=== PATIENT | female | born 1990 | race Caucasian/White ===

== ENCOUNTER 2016-08-08 15:44 | Emergency (ER) | payer OTHER ==
[~2016-08-08 15:44] MED LIST: LEXA10TA PO; PREN29TA PO
[2016-08-08 16:49] LABS: MEAN CORPUSCULAR HGB CONC 36.2 % (32.0-36.0)
[2016-08-08 17:11] LABS: BACTERIA, URINE FEW /hpf; BLOOD, URINE NEG (NEG); COMMENT (UR) CULT NOT INDICATED; CULTURE IF INDICATED CULT NOT INDICATED; GLUCOSE,URINE NEG (NEG); KETONE, URINE NEG (NEG); NITRITE,URINE NEG (NEG); PH, URINE 5.5 (5.0-8.5); SQUAMOUS EPITHELIAL CELL URINE 1 /hpf (0-5); URINE COLOR YELLOW (YELLW/STRAW)
[2016-08-08 17:13] LABS: BASOPHIL % 0.2 % (0.0-2.0); EOSINOPHIL # 0.1 TH/MM3 (0-0.4); EOSINOPHIL % 1.4 % (0.0-4.0); HEMATOCRIT 33.3 % (35.0-46.0); LYMPH % 24.9 % (9.0-44.0); LYMPHOCYTE # 2.3 TH/MM3 (1.0-4.8); MEAN CELL VOLUME 83.5 FL (80.0-100.0); MEAN CORPUSCULAR HEMOGLOBIN 30.2 PG (27.0-34.0); MONO % 7.6 % (0.0-8.0); NEUT % 65.9 % (16.0-70.0); PLATELET COUNT 181 TH/MM3 (150-450); RED BLOOD COUNT 3.98 MIL/MM3 (4.00-5.30); RED CELL DISTRIBUTION WIDTH 12.1 % (11.6-17.2); WHITE BLOOD COUNT 9.1 TH/MM3 (4.0-11.0)
[2016-08-08 17:16] VITALS: BP 132/68; PULSE 89
[2016-08-08 17:17] LABS: HEMO FLAGS AUTO DIFF
[2016-08-08 17:22] LABS: AMPHETAMINE, URINE NEG (NEG); BARBITURATES, URINE NEG (NEG); COCAINE, URINE NEG (NEG)
--- NOTE | 2016-08-08 17:22 | PD ---
HPI Chief Complaint Headaches with blurred vision Date Seen: Aug 08, 2016 Travel History International Travel<30 Days: No Contact w/Intl Traveler<30Days: No Known Affected Area: No History of Present Illness HPI Ms. Briscoe is a 26 y/o at 31/ presenting for headaches with blurry vision. She states that over the past few months, she has had severe headaches that cause blurry vision. She has seen her PCP, Dr. Amara Abraham at the [facility], for these symptoms and was recommended symptomatic treatment with Tylenol. She also ordered a pre-eclampsia work up at her last clinic visit, however she states that she was told not to complete the tests at this time. She also has been having some leakage of fluid over the couple of days. She states that there was not a large amount lost, only a few drops to wet her underwear. She endorses good movement and denies any discharge or bleeding. She has a history PIH in her first which lead to an induction at 37 weeks. Of note she does have a history of hepatitis C. History Past Medical History Narrative Medical Hepatitis C Anxiety - Lexapro Obstetric History Obstetric History 1-Miscarriage at 14 weeks 2-Induced at 37w for PIH 3-uncomplicated at 39w Past Surgical History Narrative Surgical None reported Family History Narrative Family History None reported Social History Narrative Social History Denies use, but does have history of illicit drug use. Alcohol Use: No Tobacco Use: No Substance Abuse: No Allergies-Medications (Allergen,Severity, Reaction): Coded Allergies: Penicillin (Verified Allergy, Severe, RASH, 07/30/16) Seafood (Verified Allergy, Severe, 07/30/16) Uncoded Allergies: AIR FRESHENER (Allergy, Severe, ALLERGIC REACTION TO THE CONTACT OF AIR FRESHENER, 08/16/11) Home Meds Reported Medications Vit-Iron Carbonyl ( Plus Iron 29-1 mg)1 Tab Tab1 Tab PO DAILY #30 TAB Ref 10 06/04/16 Escitalopram (Lexapro)10 Mg Tab10 Mg PO DAILY #30 TAB Ref 0 06/04/16 Review of Systems General / Constitutional: No: Fever Eyes: Blurred Vision HENT: Lightheadedness, No: Headaches Cardiovascular: Chest Pain or Discomfort, Tachycardia, No: Palpitations Respiratory: No: Short of Breath Gastrointestinal: No: Nausea, Vomiting, Diarrhea Genitourinary: No: Dysuria, Discharge, Vaginal Bleeding Musculoskeletal: No: Weakness Skin: No Rash Neurologic: Headache Psychiatric: No: Mood Disorder Endocrine: No: Polydipsia Hematologic/Lymphatic: No Lymph Node Enlargement Physical Exam Narrative GENERAL: Well-nourished, well-developed patient. SKIN: Warm and dry. HEAD: Normocephalic and atraumatic. EYES: No scleral icterus. No injection or drainage. ENT: No nasal drainage noted. Mucous membranes pink. Airway patent. NECK: Supple, trachea midline. No JVD. CARDIOVASCULAR: Regular rate and rhythm without murmurs, gallops, or rubs. RESPIRATORY: Breath sounds equal bilaterally. No accessory muscle use. ABDOMEN/GI: Abdomen soft, non-tender, bowel sounds present, no rebound, no guarding Gravid to 31 weeks size FHT's: Category: 1 Baseline: 140 Reactive: + Variability: Moderate Decels: 0 EXTREMITIES: No cyanosis or edema. BACK: Nontender without obvious deformity. No CVA tenderness. NEUROLOGICAL: Awake and alert. Motor and sensory grossly within normal limits. Five out of 5 muscle strength in all muscle groups. Normal speech. Data Data Vital Signs Reviewed: Yes Orders Vital Signs (Adult) .ON ADMISSION (08/08/16 16:38) ^ Labor Status (08/08/16 16:38) Urinalysis - C+S If Indicated (08/08/16 16:38) ^ Hydration (08/08/16 16:38) Comprehensive Metabolic Panel (08/08/16 16:38) Uric Acid (08/08/16 16:38) Pamg-1 Test .ONCE (08/08/16 16:38) Complete Blood Count With Diff (08/08/16 16:38) [facility] Medical Record Reviewed: Yes Plan Ms. Briscoe is a 26 y/o at presenting for headaches with blurry vision 1. IUP at 31 weeks -Continue routine antepartum care -Category 1 tracing, reassuring -Encourage oral hydration 2. Headaches and Blurry Vision -Serial BP: 134/77-144/72 CBC: WBC 9.1, H/H 12/33.3, platelets 181 CMP potassium 3.1, AST 54, ALP 90 Uric acid 3.3 UA: Within normal limits -24 urine collection to be done as an outpatient -Recommended bed rest with Tylenol for headaches Discharge: Patient will be discharged with PCP follow up in [address] Amara Abraham. She will also be discharged home with a 24 hour urine collection for pre-eclampsia r/o. SDW: Dr. Teresa DW: Dr. Amara Abraham Diagnosis Diagnosis: Primary Impression: 31 weeks gestation of Additional Impression: Headache Disposition: 01 DISCHARGE HOME Condition: Stable Referrals: Amara Abraham MD 1 week Sin Taylor MD R1 Aug 08, 2016 17:22
[2016-08-08 17:31] VITALS: BP 132/81; PULSE 103
[2016-08-08 17:34] LABS: ALKALINE PHOSPHATASE 101 U/L (45-117); ALT (GPT) 90 U/L (10-53); ANION GAP 11 MEQ/L (5-15); AST (GOT) 54 U/L (15-37); BICARBONATE 22.7 MEQ/L (21.0-32.0); BLOOD UREA NITROGEN 7 MG/DL (7-18); CHLORIDE 104 MEQ/L (98-107); GLOMERULAR FILTRATION RATE 149 ML/MIN (>89); POTASSIUM 3.1 MEQ/L (3.5-5.1); SODIUM (NA) 138 MEQ/L (136-145); TOTAL BILIRUBIN ADULT 0.3 MG/DL (0.2-1.0); URIC ACID 3.3 MG/DL (2.6-6.0)
[2016-08-08 17:46] VITALS: BP 127/59; PULSE 85
[2016-08-08 18:01] VITALS: BP 143/77; PULSE 86
--- NOTE | 2016-08-08 18:13 | PD ---
HPI Chief Complaint She complains of headache and lightheadedness blurry vision possible loss of fluid or bleeding or contractions Date Seen: Aug 08, 2016 Travel History International Travel<30 Days: No Contact w/Intl Traveler<30Days: No Known Affected Area: No History of Present Illness HPI Is 26-year-old white female G8 para 2 at 32 weeks and is followed by family medicine clinic. She has a reactive heart rate tracing noted, no contraction is noted, her amnio sure is negative Para: 2 : 8 History Past Medical History Narrative Medical hepatitis C history however no recent hepatitis blood work drawn to know if she is antigen or antibody positive Obstetric History Obstetric History 8 para 2 Social History Alcohol Use: No Tobacco Use: No Substance Abuse: No Allergies-Medications (Allergen,Severity, Reaction): Coded Allergies: Penicillin (Verified Allergy, Severe, RASH, 07/30/16) Seafood (Verified Allergy, Severe, 07/30/16) Uncoded Allergies: AIR FRESHENER (Allergy, Severe, ALLERGIC REACTION TO THE CONTACT OF AIR FRESHENER, 08/16/11) Home Meds Reported Medications Vit-Iron Carbonyl ( Plus Iron 29-1 mg)1 Tab Tab1 Tab PO DAILY #30 TAB Ref 10 06/04/16 Escitalopram (Lexapro)10 Mg Tab10 Mg PO DAILY #30 TAB Ref 0 06/04/16 Review of Systems Eyes: Blurred Vision, Visual changes HENT: Headaches Physical Exam Narrative GENERAL: Well-nourished, well-developed patient. SKIN: Warm and dry. HEAD: Normocephalic and atraumatic. EYES: No scleral icterus. No injection or drainage. ENT: No nasal drainage noted. Mucous membranes pink. Airway patent. NECK: Supple, trachea midline. No JVD. CARDIOVASCULAR: Regular rate and rhythm without murmurs, gallops, or rubs. RESPIRATORY: Breath sounds equal bilaterally. No accessory muscle use. BREASTS: Bilateral exam showed no masses , no retractions, no nipple discharge. ABDOMEN/GI: Abdomen soft, non-tender, bowel sounds present, no rebound, no guarding Gravid to [32-] weeks size Fundal Height: [-34 cm] GENITOURINARY: External Genitalia: intact and normal in appearance BUS glands: [-] Cervix: [-] Not checked today Dilatation: [-] Effacement: [-] Station: [-] Presentation: [-vtx] Membranes: [intact ] Uterine Contractions: [none-] FHT's: Category: [1-] Baseline: [-144] Reactive: [-yes] Variability: [-mod] Decels: [none-] EXTREMITIES: No cyanosis or edema. BACK: Nontender without obvious deformity. No CVA tenderness. NEUROLOGICAL: Awake and alert. Motor and sensory grossly within normal limits. Five out of 5 muscle strength in all muscle groups. Normal speech. Data Data Orders Vital Signs (Adult) .ON ADMISSION (08/08/16 16:38) ^ Labor Status (08/08/16 16:38) Urinalysis - C+S If Indicated (08/08/16 16:38) ^ Hydration (08/08/16 16:38) Comprehensive Metabolic Panel (08/08/16 16:38) Uric Acid (08/08/16 16:38) Pamg-1 Test .ONCE (08/08/16 16:38) Complete Blood Count With Diff (08/08/16 16:38) Ob/Psych Drug Screen, Urine (08/08/16 16:56) Ur Bath Salts (08/08/16 16:18) Ur Heroin (08/08/16 16:18) Ur K2 Spice (08/08/16 16:18) Ur Ecstasy (08/08/16 16:18) Ur Methadone (08/08/16 16:18) Phencyclidine Urine (Pcp) (08/08/16 16:18) Labs Laboratory Tests Test 08/08/16 08/08/16 16:18 16:48 Urine Color YELLOW Urine Turbidity CLEAR Urine pH 5.5 Urine Specific Dolphin 1.007 Urine Protein NEG Urine Glucose (UA) NEG Urine Ketones NEG Urine Occult Blood NEG Urine Nitrite NEG Urine Bilirubin NEG Urine Urobilinogen LESS THAN 2.0 Urine Leukocyte Esterase NEG Urine RBC 1 Urine WBC 1 Urine Squamous Epithelial 1 Cells Urine Bacteria FEW Microscopic Urinalysis Comment CULT NOT INDICATED Urine Opiates Screen NEG Urine Barbiturates Screen NEG Urine Amphetamines Screen NEG Urine Benzodiazepines Screen NEG Urine Cocaine Screen NEG Urine Cannabinoids Screen NEG White Blood Count 9.1 Red Blood Count 3.98 Hemoglobin 12.0 Hematocrit 33.3 Mean Corpuscular Volume 83.5 Mean Corpuscular Hemoglobin 30.2 Mean Corpuscular Hemoglobin 36.2 Concent Red Cell Distribution Width 12.1 Platelet Count 181 Mean Platelet Volume 8.6 Neutrophils (%) (Auto) 65.9 Lymphocytes (%) (Auto) 24.9 Monocytes (%) (Auto) 7.6 Eosinophils (%) (Auto) 1.4 Basophils (%) (Auto) 0.2 Neutrophils # (Auto) 6.0 Lymphocytes # (Auto) 2.3 Monocytes # (Auto) 0.7 Eosinophils # (Auto) 0.1 Basophils # (Auto) 0.0 CBC Comment AUTO DIFF Sodium Level 138 Potassium Level 3.1 Chloride Level 104 Carbon Dioxide Level 22.7 Anion Gap 11 Blood Urea Nitrogen 7 Creatinine 0.50 Estimat Glomerular Filtration 149 Rate Random Glucose 137 Uric Acid 3.3 Calcium Level 8.4 Total Bilirubin 0.3 Aspartate Amino Transf 54 (AST/SGOT) Alanine Aminotransferase 90 (ALT/SGPT) Alkaline Phosphatase 101 Total Protein 7.0 Albumin 2.7 MDM Interpretation(s) Patient is 26 y/o white female to 32 weeks gestation presents complaining of light being lightheaded having headaches blurry vision. Possibly also losing amniotic fluid however amnio was negative. She is followed by family medicine clinic and they've been worried about her blood pressure elevations and her recently Y to get PIH lab drawn but patient never did it so she's here today what we did that today and it was within normal limits except for AST ALK which was slightly elevated at 50 - 90 range but this may just be related to her history of hepatitis C and its effect on the liver. She needs in the next blood draw to get a hepatitis profile to see if she's hepatitis C antibody positive or negative establishing a she's chronic active hepatitis or not, and would have these liver functions repeated and 3 days to make sure there is not trending upwards Plan To be at bedrest at home collect a 24-hour urine protein over the weekend and turned in first part of next week.Also getting her blood drawn again PIH labs hepatitis profile Diagnosis Diagnosis: Primary Impression: 31 weeks gestation of Additional Impression: Headache Disposition: 01 DISCHARGE HOME Condition: Stable Referrals: Amara Abraham MD 1 week Will Teresa II, MD Aug 08, 2016 18:12
[2016-08-08 18:14] LABS: SCAN/DIFF AUTO DIFF CONFIRMED
[2016-08-14 08:16] LABS: BATH SALTS (MDPV) UR NEG (NEG); ECSTASY (MDMA) UR NEG (NEG); HEROIN (6-ACETYLMORPHINE) UR NEG (NEG); K2 SPICE UR NEG (NEG); OBMETHADONE UR NEG (NEG); OXYCODONE (PERCODAN) NEG (NEG); PHENCYCLIDINE URINE NEG (NEG)
[2016-08-16] MEDS ORDERED: DAPTINJ IM (11:47)
[2016-08-16] MEDS ORDERED: TETA1INJ6 IM (12:03)
[2016-08-27] MEDS ORDERED: POTA1TAB4 PO (15:56)
[2016-09-16] MEDS ORDERED: BREAST PUMP1 MI1 TD (16:26)
== END 2016-08-08 18:26 | disposition home or self-care (01) ==
LOC: HOBED 15:44
DX: O26.893 Other specified pregnancy related conditions, third trimester (principal); R51 Headache; H53.8 Other visual disturbances; Z86.19 Personal history of other infectious and parasitic diseases; Z3A.31 31 weeks gestation of pregnancy
CPT/HCPCS: 36415; 80053; 80307; 81001; 84112; 84550; 85025; 99284; G0481

== ENCOUNTER 2016-08-15 18:26 | Emergency (ER) | payer OTHER ==
--- NOTE | 2016-08-15 18:44 | PD ---
HPI Chief Complaint elevated bp at home Date Seen: Aug 15, 2016 Time Seen: 18:46 Travel History International Travel<30 Days: No Contact w/Intl Traveler<30Days: No Known Affected Area: No History of Present Illness HPI This is a 26 yo @ 32.6 weeks who presents to the OB ED for elevated BP at home. Patient reports her BP at home was 218/109 she was in contact with her PCP Dr. Abraham who instructed her to go to the OB ED. She states all day she has not felt like her self. She reports seeing flashes of light and is having a AWAD. Reports she checked her BP multiple times today and has been elevated. Currently she denies any contractions, she denies vaginal bleeding, and any leakage of fluid. She is feeling her baby move. Of note the patient was here on 08/08/16 for AWAD and lightheadedness and blurry vision. She was also concerned of LOF. Amnisure was negative. Labs CBC: WBC 9.1, H/H 12/33.3, platelets 181, CMP potassium 3.1, AST 54, ALP 90, Uric acid 3.3, and UA. Patients PCP at that time had ordered a PIH workup due to her elevation of BP and history of PIH in previous . PIH workup was complete including a 24 urine protein of 197. She was supposed to have an US for measuring larger than dates, also supposed to see perinatology this has all been scheduled for Sep 02. Para: 2 : 4 History Past Medical History Narrative Medical Hepatitis C Anxiety - Lexapro Obstetric History Obstetric History 1-Miscarriage at 14 weeks 2-Induced at 37w for PIH 3-uncomplicated at 39w Social History Alcohol Use: No Tobacco Use: No Substance Abuse: No (does have hx of ilicit drug use) Allergies-Medications (Allergen,Severity, Reaction): Coded Allergies: Penicillin (Verified Allergy, Severe, RASH, 07/30/16) Seafood (Verified Allergy, Severe, 07/30/16) Uncoded Allergies: AIR FRESHENER (Allergy, Severe, ALLERGIC REACTION TO THE CONTACT OF AIR FRESHENER, 08/16/11) Home Meds Reported Medications Vit-Iron Carbonyl ( Plus Iron 29-1 mg)1 Tab Tab1 Tab PO DAILY #30 TAB Ref 10 06/04/16 Escitalopram (Lexapro)10 Mg Tab10 Mg PO DAILY #30 TAB Ref 0 06/04/16 Physical Exam Narrative GENERAL: Well-nourished, well-developed patient. SKIN: Warm and dry. HEAD: Normocephalic and atraumatic. EYES: No scleral icterus. No injection or drainage. ENT: No nasal drainage noted. Mucous membranes pink. Airway patent. NECK: Supple, trachea midline. No JVD. CARDIOVASCULAR: Regular rate and rhythm without murmurs, gallops, or rubs. RESPIRATORY: Breath sounds equal bilaterally. No accessory muscle use. BREASTS: Bilateral exam showed no masses , no retractions, no nipple discharge. ABDOMEN/GI: Abdomen soft, non-tender, bowel sounds present, no rebound, no guarding GENITOURINARY: External Genitalia: intact and normal in appearance Membranes: [intact] Uterine Contractions: [none] FHT's: Category: [1] Baseline: [125] Reactive: [+accel] Variability: [moderate] Decels: [none] EXTREMITIES: No cyanosis or edema. BACK: Nontender without obvious deformity. NEUROLOGICAL: Awake and alert. Motor and sensory grossly within normal limits. Trace non pitting edema. Normal speech. Data Data Vital Signs Reviewed: Yes MDM Plan 26 yo @ 32.6 weeks presenting to ED for elevated BP, HTN, and lightheadedness - Serial BP - Repeat BP 143/78, 121/71, 134/84 - Keep appt with PCP - Keep appt for US and with perinatologist BP reassuring december d/c home. Case discussed with Dr. Galvan and Dr. Abraham Disposition: 01 DISCHARGE HOME Condition: Stable Feli Self MD R3 Aug 15, 2016 18:44
[2016-08-16] MEDS ORDERED: DAPTINJ IM (11:47)
[2016-08-16] MEDS ORDERED: TETA1INJ6 IM (12:03)
[2016-08-27] MEDS ORDERED: POTA1TAB4 PO (15:56)
[2016-09-16] MEDS ORDERED: BREAST PUMP1 MI1 TD (16:26)
== END 2016-08-15 20:30 | disposition home or self-care (01) ==
LOC: HOBED 18:26
DX: O13.3 Gestational [pregnancy-induced] hypertension without significant proteinuria, third trimester (principal); B19.20 Unspecified viral hepatitis C without hepatic coma; F41.9 Anxiety disorder, unspecified
CPT/HCPCS: 99284

== ENCOUNTER 2016-08-19 11:38 | Emergency (ER) | payer OTHER ==
--- NOTE | 2016-08-19 12:18 | PD ---
HPI Chief Complaint elevated BP Date Seen: Aug 19, 2016 Time Seen: 12:03 Travel History International Travel<30 Days: No Contact w/Intl Traveler<30Days: No History of Present Illness HPI This is a 26 yo @ 33.3 weeks who presents to the OB ED for elevated BP at home. Patient states her BP was in the 170s/90s at home. She reports she wasn' t doing anything all weekend, just resting. She states she only went out this weekend for her baby shower. She reports she does not feel well. She is feeling her baby move, no LOF, no contractions, no vaginal bleeding. She reports feeling very anxious. Endorses AWAD, dizziness, and LE edema. I saw the patient on 08/15 for the same reason. Patient reported BP in the 200s/ 100s at home. Serial BP were performed in the OB ED and were wnl and she was discharged home with PCP follow up. Of note the patient was here on 08/08/16 for AWAD and lightheadedness and blurry vision. She was also concerned of LOF. Amnisure was negative. Labs CBC: WBC 9.1, H/H 12/33.3, platelets 181, CMP potassium 3.1, AST 54, ALP 90, Uric acid 3.3, and UA. Patients PCP at that time had ordered a PIH workup due to her elevation of BP and history of PIH in previous . PIH workup was complete including a 24 urine protein of 197. Patient states she did not do her 24 hr urine protein collection correct, she only collected it for 14 hours. So she recollected it and turned it into quest yesterday. She has US scheduled for today at 1pm for measuring larger than dates, also supposed to see perinatology on Sep 02. History Past Medical History Narrative Medical Hepatitis C Anxiety - Lexapro Obstetric History Obstetric History 1-Miscarriage at 14 weeks 2-Induced at 37w for PIH 3-uncomplicated at 39w Past Surgical History Surgical History: No Previous Surgery Social History Alcohol Use: No Tobacco Use: No Substance Abuse: No (hx of ilicit drug use) Allergies-Medications (Allergen,Severity, Reaction): Coded Allergies: Penicillin (Verified Allergy, Severe, RASH, 08/16/16) Seafood (Verified Allergy, Severe, 08/16/16) Uncoded Allergies: AIR FRESHENER (Allergy, Severe, ALLERGIC REACTION TO THE CONTACT OF AIR FRESHENER, 08/16/11) Home Meds Reported Medications Vit-Iron Carbonyl ( Plus Iron 29-1 mg)1 Tab Tab1 Tab PO DAILY #30 TAB Ref 10 06/04/16 Escitalopram (Lexapro)10 Mg Tab10 Mg PO DAILY #30 TAB Ref 0 06/04/16 Physical Exam Narrative GENERAL: Well-nourished, well-developed patient. SKIN: Warm and dry. HEAD: Normocephalic and atraumatic. EYES: No scleral icterus. No injection or drainage. ENT: No nasal drainage noted. Mucous membranes pink. Airway patent. NECK: Supple, trachea midline. No JVD. CARDIOVASCULAR: Regular rate and rhythm without murmurs, gallops, or rubs. RESPIRATORY: Breath sounds equal bilaterally. No accessory muscle use. BREASTS: Bilateral exam showed no masses , no retractions, no nipple discharge. ABDOMEN/GI: Abdomen soft, non-tender, bowel sounds present, no rebound, no guarding GENITOURINARY: FHT's: Category: [1] Baseline: [150] Reactive: [+accels] Variability: [moderate] Decels: [none] EXTREMITIES: No cyanosis or edema. BACK: Nontender without obvious deformity. No CVA tenderness. NEUROLOGICAL: Awake and alert. Motor and sensory grossly within normal limits. Normal speech. Data Data Orders Vital Signs (Adult) .ON ADMISSION (08/19/16 11:58) MDM Plan 26 yo @ 33.3 weeks presents for elevated BP - category 1 tracing reassuring - serial BPs: 139/88, 139/95, 153/79, 138/90, 103/56 - Will hold on initiating antihypertensive treatment - limit BP checks to 2x per day Discussed with Dr. Hernandez Diagnosis Diagnosis: Primary Impression: induced hypertension Disposition: DISCHARGE HOME Condition: Stable Feli Self MD R3 Aug 19, 2016 12:18
[2016-08-19 12:45] VITALS: BP 103/56; PULSE 93
[2016-08-19 13:00] VITALS: BP 146/78; PULSE 96
[2016-08-27] MEDS ORDERED: POTA1TAB4 PO (15:56)
[2016-09-16] MEDS ORDERED: BREAST PUMP1 MI1 TD (16:26)
== END 2016-08-19 14:04 | disposition home or self-care (01) ==
LOC: HOBED 11:38
DX: O13.3 Gestational [pregnancy-induced] hypertension without significant proteinuria, third trimester (principal); R51 Headache; R42 Dizziness and giddiness; R60.0 Localized edema; F41.9 Anxiety disorder, unspecified; Z86.19 Personal history of other infectious and parasitic diseases; Z3A.33 33 weeks gestation of pregnancy
CPT/HCPCS: 76816; 76819

== ENCOUNTER 2016-09-02 16:47 | Emergency (ER) | payer OTHER ==
[2016-09-02] VITALS (9 sets, daily range): BP systolic 126–142; BP diastolic 66–91; PULSE 85–101; RESP 20
[~2016-09-02 16:47] MED LIST changes: +POTA1TAB4 PO
--- NOTE | 2016-09-02 17:19 | PD ---
HPI Chief Complaint High blood pressure Date Seen: Sep 02, 2016 Time Seen: 17:20 Travel History International Travel<30 Days: No Contact w/Intl Traveler<30Days: No History of Present Illness HPI 26 year-old @ 35/3 weeks presents to the OB ED for elevated BP at home to 190s/80. She reports she wasn't doing anything all, just resting while taking. She did not re-take it before coming in because higher than 160s. Feeling baby move, no LOF, no contractions, no vaginal bleeding. She reports blurred vision when her blood pressure is high and emesis x1 that was non-bloody and contained salad. Denies AWAD and dizziness, has +1 peripheral edema that has been months in duration. Of note, she would like this to be over and would like an induction. "They induced me before at 37 weeks because I kept coming in with high blood pressure". Patient was seen in OB ED 08/19, 08/15, and 08/08. She is scheduled to meet with maternal medicine tomorrow Sep 03 to evaluate for being larger than dates. Para: 2 : 4 History Past Medical History Narrative Medical Hepatitis C Anxiety - Lexapro Obstetric History Obstetric History 1-Miscarriage at 14 weeks 2-Induced at 37w for PIH 3-uncomplicated at 39w Past Surgical History Surgical History: No Previous Surgery Family History Family History: Negative Social History Alcohol Use: No Tobacco Use: No Substance Abuse: No (hx illicit drug use) Allergies-Medications (Allergen,Severity, Reaction): Coded Allergies: Penicillin (Verified Allergy, Severe, RASH, 08/30/16) Seafood (Verified Allergy, Severe, 08/30/16) Uncoded Allergies: AIR FRESHENER (Allergy, Severe, ALLERGIC REACTION TO THE CONTACT OF AIR FRESHENER, 08/16/11) Home Meds Active Scripts Potassium Chloride ER (K-Tab)20 Meq Tab40 Meq PO ONCE #2 TAB Ref 0 Prov:Amara Abraham MD 08/27/16 Reported Medications Vit-Iron Carbonyl ( Plus Iron 29-1 mg)1 Tab Tab1 Tab PO DAILY #30 TAB Ref 10 06/04/16 Escitalopram (Lexapro)10 Mg Tab10 Mg PO DAILY #30 TAB Ref 0 06/04/16 Review of Systems Except as stated in HPI: all other systems reviewed are Neg Physical Exam Narrative GENERAL: Well-nourished, well-developed patient. SKIN: Warm and dry. HEAD: Normocephalic and atraumatic. EYES: No scleral icterus. No injection or drainage. ENT: No nasal drainage noted. Mucous membranes pink. Airway patent. NECK: Supple, trachea midline. No JVD. CARDIOVASCULAR: Regular rate and rhythm without murmurs, gallops, or rubs. RESPIRATORY: Breath sounds equal bilaterally. No accessory muscle use. BREASTS: Bilateral exam showed no masses , no retractions, no nipple discharge. ABDOMEN/GI: Abdomen soft, non-tender, bowel sounds present, no rebound, no guarding FHT's: Category: [-] 1 Baseline: [-] 130 Reactive: [-] Y with accels Variability: [-] Mod Decels: [-] No EXTREMITIES: 1+ peripheral edema BACK: Nontender without obvious deformity. No CVA tenderness. NEUROLOGICAL: Awake and alert. Motor and sensory grossly within normal limits. Five out of 5 muscle strength in all muscle groups. Normal speech. Data Data Vital Signs Reviewed: Yes Orders Vital Signs (Adult) .ON ADMISSION (09/02/16 17:05) ^ Labor Status (09/02/16 17:05) Urinalysis - C+S If Indicated (09/02/16 17:05) [facility] Medical Record Reviewed: Yes Plan Plan 26 yo @ 35.3 weeks presents for elevated BP - Category 1 tracing reassuring - Trended serial B/Ps reassuring in patient with known history of anxiety- thusfar 103/56, 146/82, 137/79 - Will hold on initiating antihypertensive treatment - Limit BP checks to 1x per day, recommend if high again, lie on side for 30 minutes, re-test before coming in - Discharged with phenergan #20 tabs for nausea/vomiting - U/A ordered- provided protein <2+, will discharge home with follow up for mfm tomorrow and PCP in 1 week. -No protein in urine two days ago (08/30) with urinalysis -If protein 2+, will observe for 23 hours with pre-eclamptic labs SDW Dr Teresa, Dr Linn Diagnosis Diagnosis: Primary Impression: 35 weeks gestation of Additional Impressions: Nausea and vomiting during History of hypertension Disposition: DISCHARGE HOME Condition: Stable Scripts Promethazine (Phenergan)25 Mg Tab25 Mg PO Q6H PRN (Nausea/Vomiting) #20 TAB Ref 0 Prov:Alina Quintero MD R1 09/02/16 Alina Quintero MD R1 Sep 02, 2016 17:19
[2016-09-02] MEDS ORDERED: PROM25TA5 PO (17:35)
[2016-09-02 18:21] LABS: BLOOD, URINE NEG (NEG); COMMENT (UR) CULT NOT INDICATED; CULTURE IF INDICATED CULT NOT INDICATED; GLUCOSE,URINE NEG (NEG); KETONE, URINE NEG (NEG); MUCUS URINE FEW /lpf (OCC); NITRITE,URINE NEG (NEG); PH, URINE 6.5 (5.0-8.5); URINE COLOR LIGHT-YELLOW (YELLW/STRAW)
--- NOTE | 2016-09-02 19:24 | PD ---
HPI Chief Complaint High blood pressure Date Seen: Sep 02, 2016 Time Seen: 16:47 Travel History International Travel<30 Days: No Contact w/Intl Traveler<30Days: No Known Affected Area: No History of Present Illness HPI This patient is 26-year-old white female 35 weeks and 3 days the patient family medicine clinic. She presents planning of high blood pressure at home when she checked her pressure was 190/110 and another pressure was 180/100 or so. She denies any other complaints or problems, she checks her blood pressure often at home and she was just taking it immediately after checking checking it again related nurses here say that she checks her blood pressure continually when she's here in the adnexa between blood pressure Y Desir keep description her pressure so much patient states she was to come in and get her baby delivered because she started being and she does her blood pressures dangerous at home and she wants to get the make sure she does not have a stroke her baby is active she has no contractions bleeding or rupture the membranes heart rate tracing is reactive she is not jessy Para: 2 : 4 History Past Medical History Narrative Medical Has high blood pressure only when she is , has a history of hepatitis C Obstetric History Obstetric History 2 vaginal deliveries 1 loss Family History Family History: Negative Social History Alcohol Use: No Tobacco Use: No Substance Abuse: No Allergies-Medications (Allergen,Severity, Reaction): Coded Allergies: Penicillin (Verified Allergy, Severe, RASH, 08/30/16) Seafood (Verified Allergy, Severe, 08/30/16) Uncoded Allergies: AIR FRESHENER (Allergy, Severe, ALLERGIC REACTION TO THE CONTACT OF AIR FRESHENER, 08/16/11) Home Meds Active Scripts Promethazine (Phenergan)25 Mg Tab25 Mg PO Q6H PRN (Nausea/Vomiting) #20 TAB Ref 0 Prov:Alina Quintero MD R1 09/02/16 Potassium Chloride ER (K-Tab)20 Meq Tab40 Meq PO ONCE #2 TAB Ref 0 Prov:Amara Abraham MD 08/27/16 Reported Medications Vit-Iron Carbonyl ( Plus Iron 29-1 mg)1 Tab Tab1 Tab PO DAILY #30 TAB Ref 10 06/04/16 Escitalopram (Lexapro)10 Mg Tab10 Mg PO DAILY #30 TAB Ref 0 06/04/16 Review of Systems General / Constitutional: No: Fever, Weight Gain, Chills, Other Eyes: No: Diploplia, Blurred Vision, Visual changes, Pain, Photophobia HENT: No: Headaches, Vertigo, Lightheadedness Cardiovascular: No: Irregular Rhythm, Chest Pain or Discomfort, Palpitations, Tachycardia, Syncope, Varicosities, Edema, Cyanosis Respiratory: No: Cough, Short of Breath, Other Gastrointestinal: No: Nausea, Vomiting, Diarrhea Genitourinary: No: Decreased Urinary Output, Oliguria Musculoskeletal: No: Limited ROM, Weakness, Cramping, Edema, Pain Skin: No Rash, No Itching, No Dryness, No Lumps, No Change in Pigmentation, No Change in Nails, No Alopecia, No Lesions Neurologic: No: Weakness, Dizziness, Syncope, Focal Abnormalities, Coordination Problem, Headache, Slurred Speech, Seizures Psychiatric: No: Depression, Suicidal Ideations, Homicidal Ideation Endocrine: No: Heat Intolerance, Cold Intolerance, Polydipsia, Polyuria, Other Physical Exam Narrative GENERAL: Well-nourished, well-developed patient. SKIN: Warm and dry. HEAD: Normocephalic and atraumatic. EYES: No scleral icterus. No injection or drainage. ENT: No nasal drainage noted. Mucous membranes pink. Airway patent. NECK: Supple, trachea midline. No JVD. CARDIOVASCULAR: Regular rate and rhythm without murmurs, gallops, or rubs. RESPIRATORY: Breath sounds equal bilaterally. No accessory muscle use. BREASTS: Bilateral exam showed no masses , no retractions, no nipple discharge. ABDOMEN/GI: Abdomen soft, non-tender, bowel sounds present, no rebound, no guarding Gravid to [36-] weeks size Fundal Height: [36-] GENITOURINARY: Membranes: [intact Uterine Contractions: [none-] FHT's: Category: [-1] Baseline: [`144-] Reactive: [yes-] Variability: [-mod] Decels: [none-] EXTREMITIES: No cyanosis or edema. BACK: Nontender without obvious deformity. No CVA tenderness. NEUROLOGICAL: Awake and alert. Motor and sensory grossly within normal limits. Five out of 5 muscle strength in all muscle groups. Normal speech. Data Data Orders Vital Signs (Adult) .ON ADMISSION (09/02/16 17:05) ^ Labor Status (09/02/16 17:05) Urinalysis - C+S If Indicated (09/02/16 17:05) Labs Laboratory Tests Test 09/02/16 16:55 Urine Color LIGHT-YELLOW Urine Turbidity CLEAR Urine pH 6.5 Urine Specific [place] 1.006 Urine Protein NEG Urine Glucose (UA) NEG Urine Ketones NEG Urine Occult Blood NEG Urine Nitrite NEG Urine Bilirubin NEG Urine Urobilinogen LESS THAN 2.0 Urine Leukocyte Esterase NEG Urine RBC LESS THAN 1 Urine WBC LESS THAN 1 Urine Mucus FEW Microscopic Urinalysis Comment CULT NOT INDICATED MDM Interpretation(s) This patient is a 26-year-old white female 30 5/2 weeks followed with the family medicine clinic presents planning of high blood pressure at home. Her blood pressures here have been all within normal limits in the 130 over 80s to 120 over 60s range no high pressures were noted urinalysis negative for protein or infection Plan The plan for this patient is bedrest at home on her side and check her pressure less frequently she checks her blood pressure did size she was told is likely on her side for 30 minutes at least and then recheck it if she wants to but did not check it over and over and over very rapidly consented artificially inflates blood pressure she is also advised to maintain a low-salt diet. He is scheduled to come back tomorrow for a maternal medicine consultation and ultrasound Diagnosis Diagnosis: Primary Impression: 35 weeks gestation of Additional Impressions: Nausea and vomiting during History of hypertension Disposition: 01 DISCHARGE HOME Condition: Stable Scripts Promethazine (Phenergan)25 Mg Tab25 Mg PO Q6H PRN (Nausea/Vomiting) #20 TAB Ref 0 Prov:Alina Quintero MD R1 09/02/16 Patient Instructions: General Instructions, at 35 to 38 Weeks (ED) Departure Forms: Tests/Procedures Will Teresa II, MD Sep 02, 2016 19:24
[2016-09-16] MEDS ORDERED: BREAST PUMP1 MI1 TD (16:26)
== END 2016-09-02 18:56 | disposition home or self-care (01) ==
LOC: HOBED 16:47
DX: O13.3 Gestational [pregnancy-induced] hypertension without significant proteinuria, third trimester (principal); Z3A.35 35 weeks gestation of pregnancy
CPT/HCPCS: 59025; 81001

== ENCOUNTER 2016-09-03 11:25 | Inpatient (IN) | payer OTHER ==
[~2016-09-03 11:25] MED LIST changes: -BREAST PUMP1 MI1 TD; -IBUP-232 PO; -OXYC1TAB63 PO; -SENN1TAB PO
--- NOTE | 2016-09-03 11:49 | PD ---
HPI Chief Complaint Hypertension Date Seen: Sep 03, 2016 Time Seen: 11:38 (Davidson Linn MD R2) Travel History International Travel<30 Days: No Contact w/Intl Traveler<30Days: No Known Affected Area: No (Davidson Linn MD R2) History of Present Illness HPI 26 at 35.4; patient has a history of hypertension in and taking her blood pressures at home. Yesterday 09/02/2016, her blood pressure at home was reportedly 180/100. She came to OB triage later that night. Her blood pressures in OB triage or in the range of 130/80. She was discharged home and subsequently returned for a prescheduled appointment with maternal medicine on 09/03/2016. During that appointment and did not triage area her blood pressures range from 124/92 to 130s over 80s. However, the patient is complaining of severe 7 out of 10 headache which has been present for the last month. She is also complaining of blurry vision for the last 2 weeks. She sees black spots and this is concerning to her. She also complains of abdominal pain "near my liver"in the right upper quadrant. This also has been going on for approximately 2 weeks. Abdominal pain is 7 out of 10, nonradiating. This pain will last 2 hours and go away. Unrelated to food. No vaginal bleeding, no loss of fluid, she feels the baby move normally. Para: 2 : 4 (Davidson Linn MD R2) History Past Medical History Narrative Medical Depression/anxiety- on Lexapro 10 mg daily Hepatitis C (Davidson Linn MD R2) Obstetric History Obstetric History First : Spontaneous vaginal delivery in 2010. She was induced at 37 weeks secondary to chronic hypertension. No history of preeclampsia Second : Spontaneous vaginal delivery in 2013. She was induced at 41 weeks. No history of hypertension or preeclampsia. (Davidson Linn MD R2) Past Surgical History Surgical History: No Previous Surgery (Davidson Linn MD R2) Family History Family History: Negative (Davidson Linn MD R2) Social History Alcohol Use: No Tobacco Use: No Substance Abuse: No (Davidson Linn MD R2) Allergies-Medications (Allergen,Severity, Reaction): Coded Allergies: Penicillin (Verified Allergy, Severe, RASH, 08/30/16) Seafood (Verified Allergy, Severe, 08/30/16) Uncoded Allergies: AIR FRESHENER (Allergy, Severe, ALLERGIC REACTION TO THE CONTACT OF AIR FRESHENER, 08/16/11) Home Meds Active Scripts Promethazine (Phenergan)25 Mg Tab25 Mg PO Q6H PRN (Nausea/Vomiting) #20 TAB Ref 0 Prov:Alina Quintero MD R1 09/02/16 Potassium Chloride ER (K-Tab)20 Meq Tab40 Meq PO ONCE #2 TAB Ref 0 Prov:Amara Abraham MD 08/27/16 Reported Medications Vit-Iron Carbonyl ( Plus Iron 29-1 mg)1 Tab Tab1 Tab PO DAILY #30 TAB Ref 10 06/04/16 Escitalopram (Lexapro)10 Mg Tab10 Mg PO DAILY #30 TAB Ref 0 06/04/16 Physical Exam Narrative GENERAL: Well-nourished, well-developed patient. SKIN: Warm and dry. HEAD: Normocephalic and atraumatic. EYES: No scleral icterus. No injection or drainage. ENT: No nasal drainage noted. Mucous membranes pink. Airway patent. NECK: Supple, trachea midline. No JVD. CARDIOVASCULAR: Regular rate and rhythm without murmurs, gallops, or rubs. RESPIRATORY: Breath sounds equal bilaterally. No accessory muscle use. ABDOMEN/GI: Abdomen soft, tender to palpation in the right upper quadrant, bowel sounds present, no rebound, no guarding Uterine Contractions: None FHT's: Category: 1 Baseline: 135 Reactive: Yes with accelerations Variability: moderate Decels: None EXTREMITIES: No cyanosis or edema. BACK: Nontender without obvious deformity. No CVA tenderness. NEUROLOGICAL: Awake and alert. Motor and sensory grossly within normal limits. Five out of 5 muscle strength in all muscle groups. Normal speech. (Davidson Linn MD R2) Data Data Vital Signs Reviewed: Yes (Davidson Linn MD R2) [facility] Medical Record Reviewed: Yes Interpretation(s) 26-year-old at 35.4 with history of hypertension in with complaints of headache, blurry vision, and right upper quadrant pain; concern for preeclampsia 1. Intrauterine Category 1 tracing Continue routine care 2. Hypertension in Place in observation for 24 hour observation. Currently pressures less than 130/80. Continue to monitor blood pressure every 2 hours. Concern for preeclampsia with symptoms of headache, blurry vision Labs ordered: CBC, CMP, uric acid, urinalysis, 24-hour protein 3. Anxiety/depression Continue Lexapro 10 mg daily 4. Chronic Hepatitis C (Davidson Linn MD R2) Medical Record Reviewed: Yes Attending Attestation See H&P for additional Attending notes. I HAVE REVIEWED THE RECORD AND AGREE WITH THE ABOVE NOTE AND PLAN OF CARE WAS DISCUSSED. I HAVE AUTHORIZED THE ORDER FOR PLACEMENT IN OUT-PATIENT OBSERVATION STATUS. (Davida Velarde MD) Diagnosis Diagnosis: Primary Impression: induced hypertension Additional Impressions: 35 weeks gestation of Headache Davidson Linn MD R2 Sep 03, 2016 11:49 Davida Velarde MD Sep 03, 2016 16:15
[2016-09-03] MEDS: LACTATED RINGER'S 1000 ML INJ 1,000 ML IV SCH (11:58)
[2016-09-03] MEDS ORDERED: NIFEdipine 10 MG CAP PO PRN ×3 (12:00→12:45)
[2016-09-03] MEDS ORDERED: SODIUM CHLORIDE 0.9% FLUSH 5 ML FLUSH IV PRN (12:00)
[2016-09-03] MEDS ORDERED: CALCIUM GLUCONATE 10% 1 GM/10 ML VIAL IV PUSH PRN (12:00)
--- NOTE | 2016-09-03 12:18 | HHI.HP ---
History & Physical H&P HPI Chief Complaint Hypertension Date Seen: Sep 03, 2016 Time Seen: 11:38 Travel History International Travel<30 Days: No Contact w/Intl Traveler<30Days: No Known Affected Area: No History of Present Illness HPI 26 at 35.4; patient has a history of hypertension in and taking her blood pressures at home. Yesterday 09/02/2016, her blood pressure at home was reportedly 180/100. She came to OB triage later that night. Her blood pressures in OB triage or in the range of 130/80. She was discharged home and subsequently returned for a prescheduled appointment with maternal medicine on 09/03/2016. During that appointment and did not triage area her blood pressures range from 124/92 to 130s over 80s. However, the patient is complaining of severe 7 out of 10 headache which has been present for the last month. She is also complaining of blurry vision for the last 2 weeks. She sees black spots and this is concerning to her. She also complains of abdominal pain "near my liver"in the right upper quadrant. This also has been going on for approximately 2 weeks. Abdominal pain is 7 out of 10, nonradiating. This pain will last 2 hours and go away. Unrelated to food. No vaginal bleeding, no loss of fluid, she feels the baby move normally. Para: 2 : 4 History (Limited) History Past Medical History Narrative Medical Depression/anxiety- on Lexapro 10 mg daily Hepatitis C Obstetric History Obstetric History First : Spontaneous vaginal delivery in 2010. She was induced at 37 weeks secondary to chronic hypertension. No history of preeclampsia Second : Spontaneous vaginal delivery in 2013. She was induced at 41 weeks. No history of hypertension or preeclampsia. Past Surgical History Surgical History: No Previous Surgery Family History Family History: Negative Social History Alcohol Use: No Tobacco Use: No Substance Abuse: No Allergies-Medications Allergies-Medications (Allergen,Severity, Reaction): Coded Allergies: Penicillin (Verified Allergy, Severe, RASH, 08/30/16) Seafood (Verified Allergy, Severe, 08/30/16) Uncoded Allergies: AIR FRESHENER (Allergy, Severe, ALLERGIC REACTION TO THE CONTACT OF AIR FRESHENER, 08/16/11) Home Meds Active Scripts Promethazine (Phenergan)25 Mg Tab25 Mg PO Q6H PRN (Nausea/Vomiting) #20 TAB Ref 0 Prov:Alina Quintero MD R1 09/02/16 Potassium Chloride ER (K-Tab)20 Meq Tab40 Meq PO ONCE #2 TAB Ref 0 Prov:Amara Abraham MD 08/27/16 Reported Medications Vit-Iron Carbonyl ( Plus Iron 29-1 mg)1 Tab Tab1 Tab PO DAILY #30 TAB Ref 10 06/04/16 Escitalopram (Lexapro)10 Mg Tab10 Mg PO DAILY #30 TAB Ref 0 06/04/16 ROS Review of Systems Physical Exam Physical Exam Narrative GENERAL: Well-nourished, well-developed patient. SKIN: Warm and dry. HEAD: Normocephalic and atraumatic. EYES: No scleral icterus. No injection or drainage. ENT: No nasal drainage noted. Mucous membranes pink. Airway patent. NECK: Supple, trachea midline. No JVD. LUNGS: CTAB CARDIOVASCULAR: Regular rate and rhythm without murmurs, gallops, or rubs. RESPIRATORY: Breath sounds equal bilaterally. No accessory muscle use. ABDOMEN/GI: Abdomen soft, tender to palpation in the right upper quadrant, bowel sounds present, no rebound, no guarding Uterine Contractions: None FHT's: Category: 1 Baseline: 135 Reactive: Yes with accelerations Variability: moderate Decels: None EXTREMITIES: No cyanosis. 1 + pitting edema bilaterally on shins R>L. BACK: Nontender without obvious deformity. No CVA tenderness. NEUROLOGICAL: Awake and alert. Motor and sensory grossly within normal limits. Five out of 5 muscle strength in all muscle groups. Normal speech. 1+ DTR Data Data Data Vital Signs Reviewed: Yes [facility] MDM Medical Record Reviewed: Yes Interpretation(s) 26-year-old at 35.4 with history of hypertension in with complaints of headache, blurry vision, and right upper quadrant pain; concern for preeclampsia 1. Intrauterine Category 1 tracing Continue routine care Obtain GBS status now (rapid GBS). 2. Hypertension in Place in observation for 24 hour observation. Currently pressures less than 130/80. Continue to monitor blood pressure every 2 hours. Concern for preeclampsia with symptoms of headache, blurry vision Treating with betamethasone 12 mg q24hr X 2 (first dose now, second dose 2016 at 1600) Labs ordered: CBC, CMP, uric acid, urinalysis, 24-hour protein 3. Anxiety/depression Change Lexapro to 5 mg daily 4. Chronic Hepatitis C DW Dr. Velarde and OB hospitalist Dr. Borden Diagnosis Diagnosis: Primary Impression: induced hypertension Additional Impressions: 35 weeks gestation of Headache (Davidson Linn MD R2) H&P Pt seen and examined. H&P reviewed and corroborated w/ pt at bedside. Essentially 26 yo at 35w 4d with 1+ month hx intermittently elevated BPs , documented preEclampsia, w/ ambulatory reports generally higher than in office. Proteinuria 300+ , subsequent 24hr collection <300mg protein. Mild transaminase elevation, w/ hx of same in pt w/ HepC. To date, no documented "severe features". ROS Currently feels well except for "sinus pressure", mild severity. Attributes to "cold" onset last 1-2days. ROS episodic blurry vision, none at this time. occas RUQ discomforts, none at this time. Stable LE edema. +FM, mild vag d/c, no bleeding or ROM reported. Occasionally crampy, No fevers, cough, CP or SOB. No N/V, has just eaten lunch. BP 124/92, repeat as of 2pm 153/67. PE significant for trace pitting BLE from shins. Otherwise unremarkable. FHT 135 baseline with accels, cat I tracing, reactive NST LY 19, BPP 8/8 No contx UA dip neg protein. GBS pending Uric Acid wnl, AST 42 (sl elevated, but reduced from 54 Aug 08, 2016). Plts 190, hmgb 13 ADMIT to OBS status for preEclampsia w/ subjective concerning features. Proceed w/ Betamethasone per d/w OBH and per review of perinatology recs. BP monitoring overnight, fu pending labs, 24 hr collection for protein. Pt and FOB counseled re: Dx and mngmnt, all questions answered. I HAVE REVIEWED THE RECORD AND AGREE WITH THE ABOVE NOTE AND PLAN OF CARE WAS DISCUSSED. I HAVE AUTHORIZED THE ORDER FOR PLACEMENT IN OUT-PATIENT OBSERVATION STATUS. (Davida Velarde MD) Davidson Linn MD R2 Sep 03, 2016 12:18 Davida Velarde MD Sep 03, 2016 16:14
[2016-09-03 12:51] LABS: HEMATOCRIT 37.6 % (35.0-46.0); MEAN CELL VOLUME 83.7 FL (80.0-100.0); MEAN CORPUSCULAR HEMOGLOBIN 28.9 PG (27.0-34.0); MEAN CORPUSCULAR HGB CONC 34.5 % (32.0-36.0); PLATELET COUNT 190 TH/MM3 (150-450); RED BLOOD COUNT 4.49 MIL/MM3 (4.00-5.30); RED CELL DISTRIBUTION WIDTH 12.3 % (11.6-17.2); REVIEW FLAG FINAL; WHITE BLOOD COUNT 11.6 TH/MM3 (4.0-11.0)
[2016-09-03 12:54] LABS: BACTERIA, URINE OCC /hpf; BLOOD, URINE NEG (NEG); COMMENT (UR) CULT NOT INDICATED; CULTURE IF INDICATED CULT NOT INDICATED; GLUCOSE,URINE NEG (NEG); KETONE, URINE NEG (NEG); NITRITE,URINE NEG (NEG); PH, URINE 7.5 (5.0-8.5); URINE COLOR LIGHT-YELLOW (YELLW/STRAW)
[2016-09-03] MEDS ORDERED: LABETALOL HCL 100 MG/20 ML VIAL IV PUSH PRN (13:00)
[2016-09-03 13:16] LABS: ALKALINE PHOSPHATASE 125 U/L (45-117); ALT (GPT) 47 U/L (10-53); ANION GAP 11 MEQ/L (5-15); AST (GOT) 42 U/L (15-37); BICARBONATE 23.1 MEQ/L (21.0-32.0); BLOOD UREA NITROGEN 5 MG/DL (7-18); CHLORIDE 101 MEQ/L (98-107); GLOMERULAR FILTRATION RATE 205 ML/MIN (>89); POTASSIUM 3.5 MEQ/L (3.5-5.1); SODIUM (NA) 135 MEQ/L (136-145); TOTAL BILIRUBIN ADULT 0.5 MG/DL (0.2-1.0); URIC ACID 3.8 MG/DL (2.6-6.0)
[2016-09-03] MEDS ORDERED: BETAMETHASONE SOD PHOS/ACETATE SUSP 30 MG/5 ML VIAL IM ONE (16:00)
[2016-09-03] MEDS ORDERED: PILL SPLITTER OTHER PRN (16:00)
[2016-09-03] MEDS: ACETAMINOPHEN 500 MG CPLT PO PRN (17:43)
[2016-09-03] MEDS: SODIUM CHLORIDE 0.9% FLUSH 5 ML FLUSH IV SCH (21:00)
[2016-09-03] MEDS ORDERED: ESCITALOPRAM OXALATE 10 MG TAB PO SCH (21:00)
[2016-09-04] MEDS: LACTATED RINGER'S 1000 ML INJ 1,000 ML IV SCH ×2 (01:18→14:38)
--- NOTE | 2016-09-04 08:32 | PD.OB.ANTE ---
Subjective Diagnosis: (1) Chronic hypertension in Diagnosis: Principal (2) 35 weeks gestation of Diagnosis: Principal (3) Headache Diagnosis: Principal (4) Hepatitis C Diagnosis: Secondary (5) Depression with anxiety Diagnosis: Secondary Interval History Vital signs stable: blood [id number]/50, 126/73, 111/56, 126/56. Highest B/P yesterday @2pm: 153/67. Reports moderate frontal headache, improved by Tylenol, persistent for the past month. Also intermittent floaters and spots in front of eyes, but not recently. Denies SOB, chest pain, palpitations. Chronic peripheral edema several months in duration improved since yesterday. Patient reports difficulty sleeping secondary to low back pain and requests Lexepro be moved to 6pm because she was very anxious prior to receiving it at 9pm. Antepartum ROS: Reports: New complaints, movement normal, Denies: Loss of fluid, Vaginal bleeding, Contractions Objective Vital Signs Vital Signs Date Time Temp Pulse Resp B/P Pulse Ox O2 Delivery O2 Flow Rate FiO2 09/03/16 18:34 18 Lab & Micro Results Test 09/03/16 09/03/16 11:30 12:25 Group B Streptococcus (PCR) NEGATIVE White Blood Count 11.6 TH/MM3 Red Blood Count 4.49 MIL/MM3 Hemoglobin 13.0 GM/DL Hematocrit 37.6 % Mean Corpuscular Volume 83.7 FL Mean Corpuscular Hemoglobin 28.9 PG Mean Corpuscular Hemoglobin 34.5 % Concent Red Cell Distribution Width 12.3 % Platelet Count 190 TH/MM3 Mean Platelet Volume 8.6 FL Urine Color LIGHT-YELLOW Urine Turbidity CLEAR Urine pH 7.5 Urine Specific [place] 1.006 Urine Protein NEG mg/dL Urine Glucose (UA) NEG mg/dL Urine Ketones NEG mg/dL Urine Occult Blood NEG Urine Nitrite NEG Urine Bilirubin NEG Urine Urobilinogen LESS THAN 2.0 MG/DL Urine Leukocyte Esterase TRACE Urine WBC LESS THAN 1 /hpf Urine Bacteria OCC /hpf Microscopic Urinalysis Comment CULT NOT INDICATED Sodium Level 135 MEQ/L Potassium Level 3.5 MEQ/L Chloride Level 101 MEQ/L Carbon Dioxide Level 23.1 MEQ/L Anion Gap 11 MEQ/L Blood Urea Nitrogen 5 MG/DL Creatinine 0.38 MG/DL Estimat Glomerular Filtration 205 ML/MIN Rate Random Glucose 71 MG/DL Uric Acid 3.8 MG/DL Calcium Level 8.6 MG/DL Total Bilirubin 0.5 MG/DL Aspartate Amino Transf 42 U/L (AST/SGOT) Alanine Aminotransferase 47 U/L (ALT/SGPT) Alkaline Phosphatase 125 U/L Total Protein 7.2 GM/DL Albumin 2.9 GM/DL Date/Time Procedure Status Source Growth 09/03/16 12:25 Cancelled Genital Vaginal 09/03/16 11:30 Group B Streptococcus Screen Received Genital Genital Region Pending Physical Exam GENERAL: Adult female in no acute distress. CARDIOVASCULAR: RRR. No murmurs. RESPIRATORY: Breath sounds equal bilaterally. Lungs CTAB. No wheezing. ABDOMEN/GI: Abdomen soft, non-tender. No RUQ pain. No HSM. No masses. +BS GENITOURINARY: FHT's: Category: 1 Baseline: 135 Reactive: Yes, with accelerations Variability: Moderate Decels: No EXTREMITIES: Trace peripheral edema, 2+ patellar reflexes, symmetrical, no calf tenderness Assessment and Plan Problem List: (1) 35 weeks gestation of Status: Acute (2) Chronic hypertension in Status: Chronic (3) Depression with anxiety Status: Chronic (4) Hepatitis C Status: Chronic (5) Headache Status: Chronic Assessment and Plan 26 year-old female at 35/4 with chronic HTN in and depression/anxiety, presenting with headache, blurry vision, and RUQ pain admitted to observation to rule out pre-eclampsia. 1. 35 weeks gestation of -Category 1 tracing -Continue routine care -Rapid GBS negative 2. Chronic Hypertension in -Admit for 24 hour observation. -Pressures less than <140/80, with exception one measurement 153/67 yesterday at 2pm -Monitor blood pressure q2h -Concerning symptoms for pre-eclampsia improved/resolved: headache improved, RUQ pain/floaters resolved - suspect symptoms more likely secondary to anxiety or somatization -Treating with betamethasone 12 mg q24hr X 2 (first dose now, second dose 2016 at 1600) -Labs ordered: CBC, CMP, uric acid, urinalysis, 24-hour protein -CBC with platelets wnl, CMP with improving LFT (elevated secondary to Hepatitis C), U/A without protein, ketones, blood -First 24-hour urine protein 300+, second test <300g protein -24 hour protein collection in progress- will finish this afternoon. 3. Anxiety/depression -Continue home Lexapro 5mg daily, move to 1800 per pt request 4. Headache - Tylenol 500mg q6h PRN pain1-10 5. Chronic Hepatitis C -Likely reason for elevated LFTs, slowly improving -Follow up outpatient with GI -UDS negative (09/03/16) SDW: Dr Vipin Borden, Dr. Kaveh Quintero,Alina Mclean MD R1 Sep 04, 2016 08:31
[2016-09-04] MEDS: SODIUM CHLORIDE 0.9% FLUSH 5 ML FLUSH IV SCH ×2 (08:58→21:12)
[2016-09-04] MEDS ORDERED: ESCITALOPRAM OXALATE 10 MG TAB PO SCH (09:00)
[2016-09-04 14:11] LABS: URINE TOTAL PROTEIN TIMED 8.2 MG/DL
[2016-09-04] MEDS: ACETAMINOPHEN 500 MG CPLT PO PRN (14:55)
[2016-09-04 16:00] VITALS: RESP 18
[2016-09-04] MEDS ORDERED: BETAMETHASONE SOD PHOS/ACETATE SUSP 30 MG/5 ML VIAL IM ONE (16:00)
[2016-09-04] MEDS: MULTIVIT/MIN/PREN/FOL AC/IRON PRENATAL TAB PO SCH (16:00)
--- NOTE | 2016-09-04 17:03 | HHI.FPPN ---
Addendum to progress note ADDENDUM Reason for addendum: Additonal documentation Additional information Patient is a 26 year-old female at 35/4 with chronic HTN in and depression/anxiety, presenting with headache, blurry vision, and RUQ pain admitted to observation 09/03/16 to rule out pre-eclampsia. B/p while in observation 131/68, 133/70, 137/76. At [facility] visit 09/02/16 prompting admission for observation, however, blood pressures of 147/95 and 145/94 were recorded. Combined with 24-hour urine protein of 361g (UOP volume 4400mL) pt meets criteria for pre-eclampsia. Though RUQ pain and spots/floaters have resolved, and headache has improved, these symptoms, combined with blood pressures and proteinuria, concerning pre-eclampsia, potentially with severe features (vs mild pre-eclampsia with somatization/manufactured symptoms for secondary gain of emergent induction) Plan 1. Pre-Eclampsia -Patient not safe for discharge at this time, recommend inpatient admission with CBC, CMP, uric acid, U/A repeated at minimum q48h until delivery or induction at 37 weeks -Should patient go into active labor prior to 37 weeks, tocolytics should not be used -Should patient develop signs/symptoms of severe pre-eclampsia or there is indication of distress, emergent induction should be performed, with MgS for seizure protection -Pt desires to go home due to discomfort with hospital stay and concern over 5 year old daughter care-plans -Risks and benefits of hospitalization versus leaving against medical advice were explained to patient -OB Dr. Amara Arbaham was notified of updates in patient status via telephone @5:30pm -Continue routine antepartum care including hydration, daily multivitamin, nir-Colace BID -NST q8h: Category 1 tracing reassuring -Vital signs q4h, with monitoring of blood pressure. -Notify physician if blood pressures 140/80+ x2, at least four hours apart -Labetalol and nifedipine per protocol for HTN PRN -Continue to monitor for features of severe pre-eclampsia such as acute/ worsening headache, vision changes, RUQ pain, or hyperreflexia -Notify physician of sudden changes -Repeat CBC, CMP, Uric acid, U/A in AM 2. Anxiety/depression -Continue home Lexapro 5mg daily, move to 1800 per pt request 3. Headache, Improving - Tylenol 500mg q6h PRN pain1-10 4. Chronic Hepatitis C -Trend LFTs (likely reason they are elevated, not good indicator for pre- eclampsia) -Follow up outpatient with GI -UDS negative (09/03/16) SDW: Alina Salvador MD R1 Sep 04, 2016 17:03
--- NOTE | 2016-09-04 17:31 | HHI.PR ---
Subjective Remarks This patient is a 26-year-old 4 para 2 today she is 35 weeks and 5 days she was admitted yesterday for observation secondary to an elevated blood pressure Patient has a history of hypertension in and yesterday she complained of some right upper quadrant pain she was admitted for laboratory data and a 24- hour urine protein as well as an evaluation by maternal medicine Her laboratory data demonstrated a platelet count of 190,000 AST of 42 ALT a 47 24-hour urine demonstrated 361 mg of protein Patient has a history of hepatitis C Recommendation by maternal- medicine is that the patient be managed as an inpatient and induced at 37 weeks Or deliver prior to that time if there is indication such as elevated blood pressure necessitating controlled with IV medication The need for magnesium sulfate, or any changes in the category tracing This was discussed with the patient she does not want to remain in the hospital for 9 days Advantages and disadvantages of hospitalization were discussed with the patient It was discussed that if she wanted to leave and not be managed as an inpatient she would have to sign herself out AMA It was also discussed that if she did sign herself out AMA she would not be able to be monitored to the level that maternal medicine has recommended with twice daily nonstress testing Also she is at risk for developing severe preeclampsia with subsequent seizures with increased maternal and morbidity this was fully discussed with the patient She still does not want to stay for 9 days As this is a family practice patient Dr. Abraham is her physician will have Dr. Abraham discussed this with the patient Objective - Vital Signs Date Time Temp Pulse Resp B/P Pulse Ox O2 Delivery O2 Flow Rate FiO2 09/04/16 16:00 18 Result Diagram: 09/03/16 1225 09/03/16 1225 Rosa Mesa MD Sep 04, 2016 17:31
[2016-09-04] MEDS: ESCITALOPRAM OXALATE 10 MG TAB PO SCH (17:58)
[2016-09-04] MEDS: DOCUSATE SODIUM 50 MG/SENNA 8.6 MG TAB PO SCH (21:11)
[2016-09-05 06:01] LABS: AUTOMATED NEUTROPHIL # 10.7 TH/MM3 (1.8-7.7); BASOPHIL % 0.1 % (0.0-2.0); EOSINOPHIL % 0.1 % (0.0-4.0); HEMATOCRIT 33.1 % (35.0-46.0); HEMO FLAGS DIFF FINAL; LYMPH % 12.8 % (9.0-44.0); LYMPHOCYTE # 1.7 TH/MM3 (1.0-4.8); MEAN CELL VOLUME 83.7 FL (80.0-100.0); MEAN CORPUSCULAR HEMOGLOBIN 29.6 PG (27.0-34.0); MEAN CORPUSCULAR HGB CONC 35.3 % (32.0-36.0); MONO % 5.8 % (0.0-8.0); NEUT % 81.2 % (16.0-70.0); PLATELET COUNT 149 TH/MM3 (150-450); RED BLOOD COUNT 3.96 MIL/MM3 (4.00-5.30); RED CELL DISTRIBUTION WIDTH 12.4 % (11.6-17.2); WHITE BLOOD COUNT 13.2 TH/MM3 (4.0-11.0)
[2016-09-05 06:31] LABS: ALKALINE PHOSPHATASE 117 U/L (45-117); ALT (GPT) 40 U/L (10-53); ANION GAP 10 MEQ/L (5-15); AST (GOT) 25 U/L (15-37); BICARBONATE 24.1 MEQ/L (21.0-32.0); BLOOD UREA NITROGEN 5 MG/DL (7-18); CHLORIDE 106 MEQ/L (98-107); GLOMERULAR FILTRATION RATE 146 ML/MIN (>89); POTASSIUM 3.9 MEQ/L (3.5-5.1); SODIUM (NA) 140 MEQ/L (136-145); TOTAL BILIRUBIN ADULT 0.2 MG/DL (0.2-1.0); URIC ACID 3.1 MG/DL (2.6-6.0)
[2016-09-05] MEDS: DOCUSATE SODIUM 50 MG/SENNA 8.6 MG TAB PO SCH ×2 (09:00→20:26)
[2016-09-05] MEDS: SODIUM CHLORIDE 0.9% FLUSH 5 ML FLUSH IV SCH ×2 (09:00→21:00)
[2016-09-05] MEDS: MULTIVIT/MIN/PREN/FOL AC/IRON PRENATAL TAB PO SCH (09:00)
[2016-09-05] MEDS ORDERED: ACETAMINOPHEN 500 MG CPLT PO PRN (11:15)
--- NOTE | 2016-09-05 14:34 | PD.OB.ANTE ---
Subjective Diagnosis: (1) Chronic hypertension in Diagnosis: Principal (2) 35 weeks gestation of Diagnosis: Principal (3) Headache Diagnosis: Principal (4) Hepatitis C Diagnosis: Secondary (5) Depression with anxiety Diagnosis: Secondary Interval History Patient continues to have headache. Improved with tylenol. She spoke with her PCP Dr. Abraham and is planning on doing a symptom diary and relay whether or not her headache is related to stress/anxiety. No fever, chills, n/v/d, sob. Antepartum ROS: Reports: movement normal, Denies: New complaints, Loss of fluid, Vaginal bleeding, Contractions, Other Objective Vital Signs Vital Signs Date Time Temp Pulse Resp B/P Pulse Ox O2 Delivery O2 Flow Rate FiO2 09/04/16 16:00 18 Lab & Micro Results Test 09/05/16 04:14 White Blood Count 13.2 TH/MM3 Red Blood Count 3.96 MIL/MM3 Hemoglobin 11.7 GM/DL Hematocrit 33.1 % Mean Corpuscular Volume 83.7 FL Mean Corpuscular Hemoglobin 29.6 PG Mean Corpuscular Hemoglobin 35.3 % Concent Red Cell Distribution Width 12.4 % Platelet Count 149 TH/MM3 Mean Platelet Volume 8.8 FL Neutrophils (%) (Auto) 81.2 % Lymphocytes (%) (Auto) 12.8 % Monocytes (%) (Auto) 5.8 % Eosinophils (%) (Auto) 0.1 % Basophils (%) (Auto) 0.1 % Neutrophils # (Auto) 10.7 TH/MM3 Lymphocytes # (Auto) 1.7 TH/MM3 Monocytes # (Auto) 0.8 TH/MM3 Eosinophils # (Auto) 0.0 TH/MM3 Basophils # (Auto) 0.0 TH/MM3 CBC Comment DIFF FINAL Differential Comment Sodium Level 140 MEQ/L Potassium Level 3.9 MEQ/L Chloride Level 106 MEQ/L Carbon Dioxide Level 24.1 MEQ/L Anion Gap 10 MEQ/L Blood Urea Nitrogen 5 MG/DL Creatinine 0.51 MG/DL Estimat Glomerular Filtration 146 ML/MIN Rate Random Glucose 116 MG/DL Uric Acid 3.1 MG/DL Calcium Level 8.5 MG/DL Total Bilirubin 0.2 MG/DL Aspartate Amino Transf 25 U/L (AST/SGOT) Alanine Aminotransferase 40 U/L (ALT/SGPT) Alkaline Phosphatase 117 U/L Total Protein 6.9 GM/DL Albumin 2.7 GM/DL Date/Time Procedure Status Source Growth 09/03/16 12:25 Cancelled Genital Vaginal 09/03/16 11:30 Group B Streptococcus Screen - Preliminary Resulted Genital Genital Region NO GROUP B STREP ISOLATED Physical Exam GENERAL: Well-nourished, well-developed patient. CARDIOVASCULAR: Regular rate and rhythm without murmurs, gallops, or rubs. RESPIRATORY: Breath sounds equal bilaterally. No accessory muscle use. ABDOMEN/GI: Abdomen soft, non-tender. FHT's: Category: 1 Baseline: 140 Reactive: yes, with accels Variability: moderate Decels: none EXTREMITIES: No cyanosis or edema, non-tender, without signs of DVT. Assessment and Plan Problem List: (1) Chronic hypertension in Status: Chronic (2) 35 weeks gestation of Status: Acute (3) Headache Status: Chronic (4) Hepatitis C Status: Chronic (5) Depression with anxiety Status: Chronic Assessment and Plan 26 year-old female at 35/6 with intermittent HTN in and depression/anxiety, presenting with headache, blurry vision, and RUQ pain admitted to floor per MFM to monitor/deliver at 37 weeks 1. 35.6 weeks gestation of -Category 1 tracing -Continue routine care -Rapid GBS negative -s/p betamethasone X 2 doses 2. Concern for pre-eclampsia -Admit to floor. Will follow MFM recommendations (which are scanned into the computer) -Continue to monitor until develops severe features or patient reaches 37 weeks. At that time, will deliver. -Pressures currently wnl -Monitor blood pressure q6h -Mag sulfate if needed for seizure ppx -Labs reviewed. Order labs every other day or prn. 3. Anxiety/depression -Continue home Lexapro 5mg daily, move to 1800 per pt request 4. Headache - Tylenol 500mg q6h PRN pain1-10 5. Chronic Hepatitis C -Follow up outpatient with GI -UDS negative (09/03/16) Davidson Arrington Dr., MD R2 Sep 05, 2016 14:34
[2016-09-05] MEDS: ESCITALOPRAM OXALATE 10 MG TAB PO SCH (17:59)
[2016-09-06] MEDS: DOCUSATE SODIUM 50 MG/SENNA 8.6 MG TAB PO SCH (09:00)
[2016-09-06] MEDS: MULTIVIT/MIN/PREN/FOL AC/IRON PRENATAL TAB PO SCH (09:00)
[2016-09-06] MEDS ORDERED: LIDOCAINE HCL 1% 50 ML VIAL ONE ×2 (09:08→09:38)
--- NOTE | 2016-09-06 09:50 | PD.OB.ANTE ---
Subjective Diagnosis: (1) Chronic hypertension in Diagnosis: Principal (2) 35 weeks gestation of Diagnosis: Principal (3) Headache Diagnosis: Principal (4) Hepatitis C Diagnosis: Secondary (5) Depression with anxiety Diagnosis: Secondary Interval History This procedure note amniocentesis Patient's abdomen was prepped with Betadine of local lidocaine infused and a spinal needle used with ultrasound guidance to enter the pocket of fluid in the patient's right lateral side of the uterus were no complications to that procedure 10 cc of clear amniotic fluid drawn off without problem and sent for lung maturation post procedure NST is reactive Objective Lab & Micro Results Date/Time Procedure Status Source Growth 09/03/16 12:25 Cancelled Genital Vaginal 09/03/16 11:30 Group B Streptococcus Screen - Preliminary Resulted Genital Genital Region NO GROUP B STREP ISOLATED Physical Exam GENERAL: Well-nourished, well-developed patient. CARDIOVASCULAR: Regular rate and rhythm without murmurs, gallops, or rubs. RESPIRATORY: Breath sounds equal bilaterally. No accessory muscle use. ABDOMEN/GI: Abdomen soft, non-tender. Fundus: [-] GENITOURINARY: External Genitalia: intact and normal in appearance Cervix: [-] Dilatation: [-] Effacement: [-] Station: [-] Presentation: [-] Membranes: [-] Uterine Contractions: [-] FHT's: Category: [-] Baseline: [-] Reactive: [-] Variability: [-] Decels: [-] EXTREMITIES: No cyanosis or edema, non-tender, without signs of DVT. Assessment and Plan Problem List: (1) Chronic hypertension in Status: Chronic (2) 35 weeks gestation of Status: Acute (3) Headache Status: Chronic (4) Hepatitis C Status: Chronic (5) Depression with anxiety Status: Chronic Assessment and Plan 26 year-old female at 35/6 with intermittent HTN in and depression/anxiety, presenting with headache, blurry vision, and RUQ pain admitted to floor per MF to monitor/deliver at 37 weeks 1. 35.6 weeks gestation of -Category 1 tracing -Continue routine care -Rapid GBS negative -s/p betamethasone X 2 doses 2. Concern for pre-eclampsia -Admit to floor. Will follow MFM recommendations (which are scanned into the computer) -Continue to monitor until develops severe features or patient reaches 37 weeks. At that time, will deliver. -Pressures currently wnl -Monitor blood pressure q6h -Mag sulfate if needed for seizure ppx -Labs reviewed. Order labs every other day or prn. 3. Anxiety/depression -Continue home Lexapro 5mg daily, move to 1800 per pt request 4. Headache - Tylenol 500mg q6h PRN pain1-10 5. Chronic Hepatitis C -Follow up outpatient with GI -UDS negative (09/03/16) ALTAGRACIA Teresa,Will Gurrola II, MD Sep 06, 2016 09:50
--- NOTE | 2016-09-06 11:07 | PD.OB.ANTE ---
Subjective Diagnosis: (1) Chronic hypertension in Diagnosis: Principal (2) 35 weeks gestation of Diagnosis: Principal (3) Headache Diagnosis: Principal (4) Hepatitis C Diagnosis: Secondary (5) Depression with anxiety Diagnosis: Secondary Interval History Patient is doing well this morning. She is looking forward to the amniocentesis. No headaches, vision changes. No fever, chills. No chest pain or shortness of breath. (Davidson Linn MD R2) Objective Lab & Micro Results Date/Time Procedure Status Source Growth 09/03/16 12:25 Cancelled Genital Vaginal 09/03/16 11:30 Group B Streptococcus Screen - Final Complete Genital Genital Region NO GROUP B STREP ISOLATED Physical Exam GENERAL: Well-nourished, well-developed patient. CARDIOVASCULAR: Regular rate and rhythm without murmurs, gallops, or rubs. RESPIRATORY: Breath sounds equal bilaterally. No accessory muscle use. ABDOMEN/GI: Abdomen soft, non-tender. Fundus: [-] GENITOURINARY: External Genitalia: intact and normal in appearance Cervix: Posterior Dilatation: Closed Effacement: 0 Station: -3 Uterine Contractions: 0 FHT's: Category: 1 Baseline: 150 Reactive: Yes, with accelerations Variability: Moderate Decels: None EXTREMITIES: No cyanosis or edema, non-tender, without signs of DVT. (Davidson Linn MD R2) Assessment and Plan Problem List: (1) Chronic hypertension in Status: Chronic (2) 35 weeks gestation of Status: Acute (3) Headache Status: Chronic (4) Hepatitis C Status: Chronic (5) Depression with anxiety Status: Chronic Assessment and Plan 26 year-old female at 36.0 with intermittent HTN in and depression/anxiety, presenting with headache, blurry vision, and RUQ pain admitted to floor to monitor for preeclampsia. Patient offered and accepted amniocentesis to assess lung maturity. 1. 36.0 weeks gestation of -Category 1 tracing -Continue routine care -Rapid GBS negative -s/p betamethasone X 2 doses 2. Concern for pre-eclampsia -Admit to floor. MFM recommendations (which are scanned into the computer) and noted -The patient was offered and agreed to an amniocentesis to assess for lung maturity. The test was performed on 09/06; if lungs are mature plan is to induce labor as per Dr. Teresa -Continue to monitor until develops severe features, lung maturity verified, or she reaches 37 weeks gestational age -Pressures currently wnl -Monitor blood pressure q6h -Mag sulfate if needed for seizure ppx -Labs reviewed. Order labs every other day or prn. 3. Anxiety/depression -Continue home Lexapro 5mg daily, move to 1800 per pt request 4. Headache - Tylenol 500mg q6h PRN pain1-10 5. Chronic Hepatitis C -Follow up outpatient with GI -UDS negative (09/03/16) DW Dr. Teresa and Dr. Agosto (Davidson Linn MD R2) Assessment and Plan Patient seen and evaluated with resident under direct supervision, agree with assessment and plan. (Peter Omer MD) Davidson Linn MD R2 Sep 06, 2016 11:07 Peter Omer MD Sep 06, 2016 18:42
[2016-09-06] MEDS ORDERED: ESCITALOPRAM OXALATE 10 MG TAB PO SCH (18:00)
[2016-09-06] MEDS ORDERED: SODIUM CHLORIDE 0.9% FLUSH 5 ML FLUSH IV FLUSH PRN (18:45)
--- NOTE | 2016-09-06 19:06 | PD.LABORPN ---
Subjective Subjective The patient continues to report headache and blurred vision. She denies abdominal pain. Objective Vital Signs She has had no severe range blood pressures Objective Pelvic Exam: Cervix: [-] Dilatation: [-Closed] Effacement: [-Thick] Station: [--3] Presentation: [-Vertex] Membranes: [intact Uterine Contractions: [None-] FHT's: Category: [-] Baseline: [-] Reactive: [-Yes] Variability: [-] Decels: [-] Assessment/Plan Problem List: (1) Chronic hypertension in (2) 35 weeks gestation of (3) Headache (4) Hepatitis C (5) Depression with anxiety Assessment and Plan Assessment: Chronic hypertension with superimposed preeclampsia and concern for severe features Plan: The patient had undergone amniocentesis earlier today which was demonstrated a mature lung profile. The patient and I reviewed these findings and the options including continued observation until 37 weeks as previously recommended by maternal medicine versus proceeding with ripening and induction due to the patient's unwillingness to remain hospitalized and the lingering concern of the possibility that her headache and visual symptoms actually do represent preeclamptic symptoms versus underlying anxiety symptoms. After thorough review of the risks and benefits she desires to move forward with the plan for ripening and induction of labor. Consent was obtained for the use of Cytotec followed by [facility]. Peter Omer MD Sep 06, 2016 19:05
[2016-09-06] MEDS ORDERED: LIDOCAINE HCL 1% 50 ML VIAL INFIL PRN (20:00)
[2016-09-06] MEDS ORDERED: MINERAL OIL 10 ML VIAL TOP PRN (20:00)
[2016-09-06] MEDS ORDERED: LACTATED RINGER'S 1000 ML BOLUS IV PRN (20:00)
[2016-09-06] MEDS ORDERED: NS 500 ML BOLUS IV PRN (20:00)
[2016-09-06] MEDS ORDERED: NS 1000 ML IV PRN (20:00)
[2016-09-06] MEDS ORDERED: LIDOCAINE HCL 1% 50 ML VIAL I-DERMAL PRN (20:00)
[2016-09-06] MEDS ORDERED: CITRIC ACID-SODIUM CITRATE LIQ 30 ML UDC PO SCH (20:00)
[2016-09-06] MEDS ORDERED: OXYTOCIN 30 UNITS 500ML PREMIX IV ONE (20:00)
[2016-09-06] MEDS ORDERED: ONDANSETRON HCL 4 MG/2 ML VIAL IV PRN (20:00)
[2016-09-06] MEDS: LACTATED RINGER'S 1000 ML IV SCH (20:00)
[2016-09-06] MEDS: SODIUM CHLORIDE 0.9% FLUSH 5 ML FLUSH IV FLUSH SCH (21:00)
[2016-09-06] MEDS: MISOPROSTOL 25 MCG SUPP VAGINAL PRN (21:22)
[2016-09-06] MEDS: LACTATED RINGER'S 1000 ML INJ 1,000 ML IV SCH (21:25)
[2016-09-07] MEDS: MISOPROSTOL 25 MCG SUPP VAGINAL PRN ×3 (01:25→09:46)
[2016-09-07] MEDS: LACTATED RINGER'S 1000 ML INJ 1,000 ML IV SCH (05:33)
[2016-09-07] MEDS: DOCUSATE SODIUM 50 MG/SENNA 8.6 MG TAB PO SCH (09:00)
[2016-09-07] MEDS: MULTIVIT/MIN/PREN/FOL AC/IRON PRENATAL TAB PO SCH (09:00)
[2016-09-07] MEDS: SODIUM CHLORIDE 0.9% FLUSH 5 ML FLUSH IV FLUSH SCH (09:00)
[2016-09-07] MEDS: LACTATED RINGER'S 1000 ML IV SCH (09:50)
--- NOTE | 2016-09-07 10:03 | PD.LABORPN ---
Subjective Subjective This morning patient reports that she is feeling well. Does not have any headaches or blurry vision at this time. Reports this occurs as the day progresses and she is up moving around. Endorses movement. Denies LOF, vaginal bleeding. Is starting to have back pain from Cytotec. (Melissa Miller MD R2) Objective Objective Pelvic Exam: Cervix: [-] Dilatation: 0-1 Effacement: 20 Station: -3 Membranes: intact Uterine Contractions: none FHT's: Category: 1 Baseline:140 Reactive: accels present Variability: moderate Decels: none (Melissa Miller MD R2) Assessment/Plan Problem List: (1) Pre-eclampsia in third trimester (2) 36 weeks gestation of (3) Hepatitis C (4) Depression with anxiety Assessment and Plan 26 year-old female at 36/1 with intermittent HTN in and depression/anxiety. Admitted for concern for pre-eclampsia. Now induced 1. IUP * Premature at 36 weeks * Category 1 tracing reassuring * GBS negative * s/p betamethasone X 2 doses 2. Pre-eclampsia * BP well controlled at this time. * Labs: urine protein elevated >300mg. Plts and liver enzymes otherwise unremarkable. * Induction started 09/06/2016 -Cytotec x4 doses -Will likely need chambers bulb vs pitocin to assist with labor augmentation * Continue routine labor care * As labor progresses into active phase, will begin Magnesium * MFM recommendations included delaying delivery until 37weeks, but because of severe symptoms, the decision for induction at 36wks was made * Amniocentesis performed on 09/06 which revealed lung maturity 3. Pustule at site of IV * Initially evaluated by Dr. Omer who reports erythema is improving * Continue to monitor for resolution to minimize risk of more systemic/involved infection 4. Anxiety/depression * Home Lexapro increased to 10mg daily. 5. Headache * Tylenol 500mg q6h PRN pain1-10 6. Chronic Hepatitis C * Follow up outpatient with GI * UDS negative (09/03/16) dw Dr. Omer (Melissa Miller MD R2) Assessment and Plan Patient seen and evaluated with resident under direct supervision, agree with assessment and plan. (Peter Omer MD) Melissa Miller MD R2 Sep 07, 2016 10:03 Peter Omer MD Sep 08, 2016 10:02
--- NOTE | 2016-09-07 10:55 | PD.LABORPN ---
Subjective Subjective Currently asymptomatic. Denies AWAD, blurry vision, and RUQ abdominal pain. Is complaining of some vaginal bleeding after recent cervical check. (Melissa Atwood MD R2) Objective Objective Procedure: Cervical bulb placed through cervical os. Cervix was visualized with speculum. Minimum vaginal bleeding present. Manuel was placed without complication and bulb was filled with 40 cc of water. Remained in place when pressure was applied. FHT's: Category: 1 Baseline: 140 Reactive: Accelerations present Variability: Moderate Decels: None (Melissa Miller MD R2) Assessment/Plan Problem List: (1) Pre-eclampsia in third trimester (2) 36 weeks gestation of (3) Hepatitis C (4) Depression with anxiety Assessment and Plan 26 year-old female at 36/1 with intermittent HTN in and depression/anxiety. Admitted for concern for pre-eclampsia. Now induced 1. IUP * Premature at 36 weeks * Category 1 tracing reassuring, anticipate vaginal delivery * GBS negative * s/p betamethasone X 2 doses 2. Pre-eclampsia * BP well controlled at this time and patient is asymptomatic * Labs: urine protein elevated >300mg. Plts and liver enzymes otherwise unremarkable. * Induction started 09/06/2016 -Cytotec x4 doses -Manuel bulb placed -Begin Pitocin once bulb is out * Continue routine labor care * If symptoms of severe preeclampsia developed, will begin magnesium sulfate. * MFM recommendations included delaying delivery until 37weeks, but because of severe symptoms, the decision for induction at 36wks was made * Amniocentesis performed on 09/06 which revealed lung maturity 3. Pustule at site of IV * Initially evaluated by Dr. Omer who reports erythema is improving * Continue to monitor for resolution to minimize risk of more systemic/involved infection 4. Anxiety/depression * Home Lexapro increased to 10mg daily. 5. Headache * Tylenol 500mg q6h PRN pain1-10 6. Chronic Hepatitis C * Follow up outpatient with GI * UDS negative (09/03/16) dw Dr. Miller (Melissa Miller MD R2) Attestation Patient seen and examined with the resident under direct supervision, I agree with the assessment and plan. (Mehdi Miller MD) Melissa Miller MD R2 Sep 07, 2016 10:55 Mehdi Miller MD Sep 07, 2016 18:57
[2016-09-07 12:03] LABS: BLOOD, URINE NEG (NEG); GLUCOSE,URINE NEG (NEG); KETONE, URINE NEG (NEG); NITRITE,URINE NEG (NEG); PH, URINE 6.5 (5.0-8.5); URINE COLOR LIGHT-YELLOW (YELLW/STRAW)
[2016-09-07 12:06] LABS: COMMENT (UR) CULT NOT INDICATED; CULTURE IF INDICATED CULT NOT INDICATED
[2016-09-07 12:20] LABS: AMPHETAMINE, URINE NEG (NEG); BARBITURATES, URINE NEG (NEG); COCAINE, URINE NEG (NEG)
--- NOTE | 2016-09-07 14:14 | PD.LABORPN ---
Subjective Subjective Denies AWAD or blurry vision. Is complaining of pain that is being controlled with fentanyl. Is having some more spotting. (Melissa Miller MD R2) Objective Objective Pelvic Exam: Manuel bulb still in place. Traction applied. -Uterine Contractions: none FETUS: Category: 2 Baseline: 130 Reactive: accels present Variability: moderate Decels: 1 decel, corrected with repositioning (Melissa Miller MD R2 ) Assessment/Plan Problem List: (1) Pre-eclampsia in third trimester (2) 36 weeks gestation of (3) Hepatitis C (4) Depression with anxiety Assessment and Plan 26 year-old female at 36/1 with intermittent HTN in and depression/anxiety. Admitted for concern for pre-eclampsia. Now induced 1. IUP * Premature at 36 weeks * Category 2 tracing reassuring, 1 decel that was quickly corrected with repositioning. * GBS negative * s/p betamethasone X 2 doses 2. Pre-eclampsia * BP well controlled at this time and patient is asymptomatic * Labs: urine protein elevated >300mg. Plts and liver enzymes otherwise unremarkable. * Induction started 09/06/2016 -Cytotec x4 doses -Manuel bulb placed-continues to present at about 4hrs. Will continue to monitor prior to starting pit. -Begin Pitocin once bulb is out * Continue routine labor care * If symptoms of severe preeclampsia developed, will begin magnesium sulfate. * MFM recommendations included delaying delivery until 37weeks, but because of severe symptoms, the decision for induction at 36wks was made * Amniocentesis performed on 09/06 which revealed lung maturity 3. Pustule at site of IV * Initially evaluated by Dr. Omer who reports erythema is improving * Continue to monitor for resolution to minimize risk of more systemic/involved infection 4. Anxiety/depression * Home Lexapro increased to 10mg daily. 5. Headache * Tylenol 500mg q6h PRN pain1-10 6. Chronic Hepatitis C * Follow up outpatient with GI * UDS negative (09/03/16) wdw Dr. Miller (Melissa Miller MD R2) Attestation Patient seen and examined with the resident under direct supervision and agree with the assessment and plan. (Mehdi Miller MD) Melissa Miller MD R2 Sep 07, 2016 14:14 Mehdi Miller MD Sep 07, 2016 18:58
[2016-09-07] MEDS ORDERED: OXYTOCIN 30 UNITS-500ML PREMIX 500 ML IV SCH ×2 (15:00→17:00)
--- NOTE | 2016-09-07 17:47 | PD.LABORPN ---
Subjective Subjective Asymptomatic, denies AWAD and blurry vision. Feels contractions. (Melissa Miller MD R2) Objective Objective Pelvic Exam: Cervix: anterior Dilatation: 3 Effacement: 60 Station: -3 Membranes: AROM at 1734, bloody Uterine Contractions: q2min FHT's: Category: 1 Baseline: 140 Reactive: accels present Variability: moderate Decels: none (Melissa Miller MD R2) Assessment/Plan Problem List: (1) Pre-eclampsia in third trimester (2) 36 weeks gestation of (3) Hepatitis C (4) Depression with anxiety Assessment and Plan 26 year-old female at 36/1 with intermittent HTN in and depression/anxiety. Admitted for concern for pre-eclampsia. Now induced 1. IUP * Premature at 36 weeks * Category 1 tracing reassuring * GBS negative * s/p betamethasone X 2 doses 2. Pnd-[id number]-qkws * BP well controlled at this time and patient is asymptomatic. Will continue to hold on Mag * Labs: urine protein elevated >300mg. Plts and liver enzymes otherwise unremarkable. * Induction started 09/06/2016 -Cytotec x4 doses -Manuel bulb spontaneously came out after about 4-5hrs -Pit started at 1-1-30 but increased now to 2-2-30 -IUPC placed during AROM at 1731 which did show bloody fluids * Continue routine labor care * MFM recommendations included delaying delivery until 37weeks, but because of severe symptoms, the decision for induction at 36wks was made * Amniocentesis performed on 09/06 which revealed lung maturity 3. Pustule at site of IV * Initially evaluated by Dr. Omer who reports erythema is improving * Continue to monitor for resolution to minimize risk of more systemic/involved infection 4. Anxiety/depression * Home Lexapro increased to 10mg daily. 5. Headache * Tylenol 500mg q6h PRN pain1-10 6. Chronic Hepatitis C * Follow up outpatient with GI * UDS negative (09/03/16) sdw Dr. Miller (eMlissa Miller MD R2) Attestation Patient seen and evaluated with the resident under direct supervision, I agree with the assessment and plan. (Mehdi Miller MD) Melissa Miller MD R2 Sep 07, 2016 17:47 Mehdi Miller MD Sep 07, 2016 18:58
--- NOTE | 2016-09-07 21:06 | PD.LABORPN ---
Subjective Subjective No symptoms of severe pre-eclampsia. Pain worsening from contractions. (Melissa Atwood MD R2) Objective Objective Pelvic Exam: Cervix: mid position Dilatation: 3-4 Effacement: 70 Station:-2 Membranes: AROM 1731 Uterine Contractions: q2 FHT's: Category: 1 Baseline: 130 Reactive: no recent accels Variability: moderate Decels: none (Melissa Miller MD R2) Assessment/Plan Problem List: (1) Pre-eclampsia in third trimester (2) 36 weeks gestation of (3) Hepatitis C (4) Depression with anxiety Assessment and Plan 26 year-old female at 36/1 with intermittent HTN in and depression/anxiety. Admitted for concern for pre-eclampsia. Now induced 1. IUP * Premature at 36 weeks * Category 1 tracing reassuring * GBS negative * s/p betamethasone X 2 doses 2. Nnz-tipbeqkon-hcml * BP well controlled at this time and patient is asymptomatic. Will continue to hold on Mag * Labs: urine protein elevated >300mg. Plts and liver enzymes otherwise unremarkable. * Induction started 09/06/2016 -Cytotec x4 doses -Manuel bulb spontaneously came out after about 4-5hrs -Pit started at 1-1-30 but increased now to 2-2-30 -IUPC placed during AROM at 1731 which did show bloody fluids * Continue routine labor care * MFM recommendations included delaying delivery until 37weeks, but because of severe symptoms, the decision for induction at 36wks was made * Amniocentesis performed on 09/06 which revealed lung maturity 3. Pustule at site of IV * Initially evaluated by Dr. Omer who reports erythema is improving * Continue to monitor for resolution to minimize risk of more systemic/involved infection 4. Anxiety/depression * Home Lexapro 5mg daily. 5. Headache * Tylenol 500mg q6h PRN pain1-10 6. Chronic Hepatitis C * Follow up outpatient with GI * UDS negative (09/03/16) wdw Dr. Miller (Melissa Miller MD R2) Attestation Patient seen and examined with the resident under direct supervision, I agree with the assessment and plan. (Mehdi Miller MD) Melissa Miller MD R2 Sep 07, 2016 21:06 Mehdi Miller MD Sep 07, 2016 21:46
[2016-09-07] MEDS ORDERED: fentaNYL 2MCG-BUPIV 0.125% INJ 100 ML ONE (23:04)
--- NOTE | 2016-09-08 01:16 | PD.LABORPN ---
Subjective Subjective No complaints. Sleeping comfortably since epidural. (Melissa Miller MD R2) Objective Objective Pelvic Exam: Cervix: mid position Dilatation: 4 Effacement: 70 Station: -2 Membranes: AROM at 1731 Uterine Contractions: q3-4min FHT's: Category: 1 Baseline: 130 Reactive: accels present Variability:moderate Decels: early (Melissa Miller MD R2) Assessment/Plan Problem List: (1) Pre-eclampsia in third trimester (2) 36 weeks gestation of (3) Hepatitis C (4) Depression with anxiety Assessment and Plan 26 year-old female at 36/1 with intermittent HTN in and depression/anxiety. Admitted for concern for pre-eclampsia. Now induced 1. IUP * Premature at 36 weeks * Category 1 tracing reassuring * GBS negative * s/p betamethasone X 2 doses * labor progressing slow but there has been some progression. Continue to monitor 2. Lvj-lmisrgsbs-xsno * BP well controlled at this time and patient is asymptomatic. Will continue to hold on Mag * Labs: urine protein elevated >300mg. Plts and liver enzymes otherwise unremarkable. * Induction started 09/06/2016 -Cytotec x4 doses -Manuel bulb spontaneously came out after about 4-5hrs -Pit started at 1-1-30 but increased now to 2-2-30 -IUPC placed during AROM at 1731 which did show bloody fluids * Continue routine labor care * MFM recommendations included delaying delivery until 37weeks, but because of severe symptoms, the decision for induction at 36wks was made * Amniocentesis performed on 09/06 which revealed lung maturity 3. Pustule at site of IV * Initially evaluated by Dr. Omer who reports erythema is improving * Continue to monitor for resolution to minimize risk of more systemic/involved infection 4. Anxiety/depression * Home Lexapro 5mg daily. 5. Headache * Tylenol 500mg q6h PRN pain1-10 6. Chronic Hepatitis C * Follow up outpatient with GI * UDS negative (09/03/16) wdw Dr. Miller sdw Dr. Dung Guzman (Melissa Miller MD R2) Attestation Patient seen and evaluated with the resident under direct supervision, I agree with the assessment and plan. (Mehdi Miller MD) Melissa Miller MD R2 Sep 08, 2016 01:16 Mehdi Miller MD Sep 08, 2016 09:18
--- NOTE | 2016-09-08 05:19 | PD.LABORPN ---
Subjective Subjective Patient sleeping comfortably, denies new symptoms at this time. Feels her pain is well-controlled. (Marianne Guzman MD R1) Objective Vital Signs BP 103/53, P 83, R 18, most recent temp 98.0F (@0430) Objective Pelvic Exam (last exam 09/08/16 @ ~0330 per nursing staff): Cervix: mid position Dilatation: 4 Effacement: 70 Station: -2 Membranes: AROM at 1731 Uterine Contractions: q2-3min FHT's: Category: 1 Baseline: 130 Reactive: accels present Variability:moderate Decels: early (Marianne Guzman MD R1) Assessment/Plan Problem List: (1) Pre-eclampsia in third trimester (2) 36 weeks gestation of (3) Hepatitis C (4) Depression with anxiety Assessment and Plan 26 year-old female at 36/2 with intermittent HTN in and depression/anxiety. Admitted for concern for pre-eclampsia. Now induced, epidural placed ~2330, on pit at 10 1. IUP * Premature at 36 weeks * Category 1 tracing reassuring * GBS negative * s/p betamethasone X 2 doses * labor progressing slow but there has been some progression. Continue to monitor 2. Mqd-jaxxqlxen-tjba * BP well controlled at this time and patient is asymptomatic at SBP 90s-100s. Will continue to hold on Mag * Labs: urine protein elevated >300mg. Plts and liver enzymes otherwise unremarkable. * Induction started 09/06/2016 -Cytotec x4 doses -Manuel bulb spontaneously came out after about 4-5hrs -Pit started at 1-1-30 but increased now to 2-2-30 -IUPC placed during AROM at 1731 which did show bloody fluids * Continue routine labor care * MFM recommendations included delaying delivery until 37weeks, but because of severe symptoms, the decision for induction at 36wks was made * Amniocentesis performed on 09/06 which revealed lung maturity 3. Pustule at site of IV * Initially evaluated by Dr. Omer who reports erythema is improving * Continue to monitor for resolution to minimize risk of more systemic/involved infection 4. Anxiety/depression * Home Lexapro 5mg daily. 5. Headache * Tylenol 500mg q6h PRN pain1-10 6. Chronic Hepatitis C * Follow up outpatient with GI * UDS negative (09/03/16) wdw Dr. Miller sdw Dr. Nahum Miller (Marianne Guzman MD R1) Attestation Patient seen and evaluated with the resident under direct supervision, I agree with the assessment and plan. (Mehdi Miller MD) Marianne Guzman MD R1 Sep 08, 2016 05:19 Mehdi Miller MD Sep 08, 2016 09:19
[2016-09-08] MEDS ORDERED: fentaNYL 2MCG-BUPIV 0.125% INJ 100 ML ONE (06:35)
--- NOTE | 2016-09-08 07:51 | PD.LABORPN ---
Subjective Subjective Asymptomatic. Resting comfortably. (Melissa Miller MD R2) Objective Objective Pelvic Exam: Cervix: anterior Dilatation: 4 Effacement: 80 Station: -2 Membranes: AROM at 1731 on 09/07 Uterine Contractions: q2-3min FHT's: Category: 1 Baseline: 140 Reactive: accels present Variability: moderate Decels: none (Melissa Miller MD R2) Assessment/Plan Problem List: (1) Pre-eclampsia in third trimester (2) 36 weeks gestation of (3) Hepatitis C (4) Depression with anxiety Assessment and Plan 26 year-old female at 36/2 with intermittent HTN in and depression/anxiety. Admitted for concern for pre-eclampsia. Now induced, epidural placed ~2330, on pit at 11 1. IUP * Premature at 36 weeks * Category 1 tracing reassuring * GBS negative * s/p betamethasone X 2 doses * labor progressing slow but there has been some progression. Continue to monitor. No indication of C/S at this time 2. Byy-lznafxyku-kfey * BP well controlled at this time and patient is asymptomatic at SBP 90s-100s. Will continue to hold on Mag * Labs: urine protein elevated >300mg. Plts and liver enzymes otherwise unremarkable. * Induction started 09/06/2016 -Cytotec x4 doses -Manuel bulb spontaneously came out after about 4-5hrs -Labor augmentation with Pitocin -IUPC placed during AROM at 1731 on 09/07 which did show bloody fluids * Continue routine labor care * MFM recommendations included delaying delivery until 37weeks, but because of severe symptoms, the decision for induction at 36wks was made * Amniocentesis performed on 09/06 which revealed lung maturity 3. Pustule at site of IV * Initially evaluated by Dr. Omer who reports erythema is improving * Continue to monitor for resolution to minimize risk of more systemic/involved infection 4. Anxiety/depression * Home Lexapro 5mg daily. 5. Headache * Tylenol 500mg q6h PRN pain1-10 6. Chronic Hepatitis C * Follow up outpatient with GI * UDS negative (09/03/16) leww Dr. Miller (Melissa Miller MD R2) Attestation Patient seen and evaluated with the resident under direct supervision, I agree with the assessment and plan. (Mehdi Millre MD) Melissa Miller MD R2 Sep 08, 2016 07:50 Mehdi Miller MD Sep 08, 2016 09:22
[2016-09-08] MEDS ORDERED: NO SYSTEM NARCOTICS XX PRN (08:30)
[2016-09-08] MEDS ORDERED: fentaNYL 2MCG-BUPIV 0.125% INJ 100 ML EPIDURAL SCH (08:30)
[2016-09-08] MEDS ORDERED: DO NOT ADMINISTER ANTICOAGULANTS XX PRN (08:30)
[2016-09-08] MEDS ORDERED: ePHEDrine/NS 50 MG/5 ML SYR IV PRN (08:30)
[2016-09-08] MEDS: SODIUM CHLORIDE 0.9% FLUSH 5 ML FLUSH IV FLUSH SCH (09:00)
[2016-09-08] MEDS: DOCUSATE SODIUM 50 MG/SENNA 8.6 MG TAB PO SCH ×2 (09:00→21:00)
[2016-09-08] MEDS: MULTIVIT/MIN/PREN/FOL AC/IRON PRENATAL TAB PO SCH (09:00)
[2016-09-08] MEDS ORDERED: BUPIVACAINE/EPINEPHRINE 0.25% PF 10 ML VIAL ONE (09:45)
--- NOTE | 2016-09-08 14:27 | PD.LABORPN ---
Subjective Subjective Pt seen and examined. Family present at bedside. Denies headache, vision changes. Blood pressures have been stable. Pain well controlled. No acute concerns at this time. (Winnie Guzman MD R2) Objective Objective Pelvic Exam: Cervix: posterior Dilatation: 8-9cm Effacement: 90% Station: -2 Presentation: Vertex Membranes: ruptured Uterine Contractions: Q2 minutes FHT's: Category: 2 Baseline: 145 Reactive: + Variability: Moderate Decels: Occasional variables (Winnie Guzman MD R2) Assessment/Plan Problem List: (1) Pre-eclampsia in third trimester (2) 36 weeks gestation of (3) Hepatitis C (4) Depression with anxiety Assessment and Plan 26 year-old female at 36/2 with intermittent HTN in and depression/anxiety. Admitted for concern for pre-eclampsia. Now induced, epidural placed ~2330, on pit at 22 1. IUP * Premature at 36 weeks * Category 2 tracing * Pt laying on her left side * Consider additional measures if variables persist or increase in frequency, ie oxygen, amnioinfusion. * GBS negative * s/p betamethasone X 2 doses * Continue to monitor. No indication of C/S at this time 2. Hwj-dxiquyhmn-pwdy * BP well controlled at this time and patient is asymptomatic at SBP 100s-120s. Will continue to hold on Mag * Labs: urine protein elevated >300mg. Plts and liver enzymes otherwise unremarkable. * Induction started 09/06/2016 -Cytotec x4 doses -Manuel bulb spontaneously came out after about 4-5hrs -Labor augmentation with Pitocin -IUPC placed during AROM at 1731 on 09/07 * Continue routine labor care * MFM recommendations included delaying delivery until 37weeks, but because of severe symptoms, the decision for induction at 36wks was made * Amniocentesis performed on 09/06 which revealed lung maturity 3. Pustule at site of IV * Initially evaluated by Dr. Omer who reports erythema is improving * Continue to monitor for resolution to minimize risk of more systemic/involved infection 4. Anxiety/depression * Home Lexapro 5mg daily. 5. Headache * Tylenol 500mg q6h PRN pain1-10 6. Chronic Hepatitis C * Follow up outpatient with GI * UDS negative (09/03/16) dw Dr. Omer (Winnie Guzman MD R2) Assessment and Plan Patient seen and evaluated with resident under direct supervision, agree with assessment and plan. (Peter Omer MD) Winnie Guzman MD R2 Sep 08, 2016 14:27 Peter Omer MD Sep 08, 2016 15:23
--- NOTE | 2016-09-08 15:26 | PD.OB.DELI ---
Delivery Date: Sep 08, 2016 Anesthesia: Epidural Episiotomy: None Vaginal Delivery: Normal Presentation: Other (brow) Delayed cord clamping (45 sec): Yes : Female One Minute : 9 Five Minute : 9 Weight: 2915 Care: Spontaneous crying Placenta: Spontaneous delivery, Intact, 3 vessel cord Laceration: No lacerations Peter Omer MD Sep 08, 2016 15:25
[2016-09-08] MEDS ORDERED: ZOLPIDEM TARTRATE 5 MG TAB PO PRN (15:30)
[2016-09-08] MEDS ORDERED: DOCUSATE SODIUM 50 MG/SENNA 8.6 MG TAB PO PRN (15:30)
[2016-09-08] MEDS ORDERED: BENZOCAINE 20% TOPICAL SPRAY 60 ML CAN TOPICAL PRN (15:30)
[2016-09-08] MEDS ORDERED: WITCH HAZEL 50%/GLYCERIN 12.5% 40 PAD JAR TOPICAL PRN (15:30)
[2016-09-08] MEDS ORDERED: ACETAMINOPHEN 325 MG TAB PO PRN (15:30)
[2016-09-08] MEDS ORDERED: ALUMINUM/MAGNESIUM/SIMETH 30 ML CUP PO PRN (15:30)
[2016-09-08] MEDS ORDERED: ONDANSETRON ODT 4 MG TAB PO PRN (15:30)
[2016-09-08] MEDS ORDERED: SODIUM CHLORIDE 0.9% FLUSH 5 ML FLUSH IV PRN (15:30)
[2016-09-08] MEDS ORDERED: DIPHTH/TETANUS/ACEL PERTUSSIS (BOOSTER) 0.5 ML VIAL/PFS IM ONE (16:00)
[2016-09-08] MEDS ORDERED: MEASLES, MUMPS, RUBELLA VACCINE 0.5 ML VIAL SQ ONE (16:00)
[2016-09-08] MEDS: IBUPROFEN 600 MG TAB PO PRN ×2 (17:36→22:24)
[2016-09-08] MEDS: ESCITALOPRAM OXALATE 10 MG TAB PO SCH (17:36)
[2016-09-08] MEDS ORDERED: SODIUM CHLORIDE 0.9% FLUSH 5 ML FLUSH IV SCH (21:00)
[2016-09-08] MEDS ORDERED: oxyCODONE/ACETAMINOPHEN 5 MG/325 MG TAB PO PRN (23:45)
[2016-09-09] MEDS: oxyCODONE/ACETAMINOPHEN 5 MG/325 MG TAB PO PRN ×4 (00:15→18:02)
[2016-09-09] MEDS: IBUPROFEN 600 MG TAB PO PRN ×3 (06:00→18:02)
--- NOTE | 2016-09-09 07:28 | HHI.OB ---
Subjective Post Day: 1 Remarks PPD1. AFVSS. Reports moderate abdominal pain with cramping uterine contractions. Decreasing lochia. Both breast-feeding and bottle feeding, though not at present because pumping exacerbates her uterine cramping. Eating, voiding, ambulating without difficullty. Denies flatus or BM. Denies AWAD, SOB, chest pain, dysuria, or calf pain. (Alina Quintero MD R1) Objective Other Results Laboratory Tests Test 09/06/16 09/06/16 09/07/16 09:40 21:40 11:15 Amniotic Fluid Lamellar Body 52 COMMENT Count Blood Type O POSITIVE Band and Hold Urine Color LIGHT-YELLOW (YELLW/STRAW) Urine Turbidity CLEAR (CLEAR) Urine pH 6.5 (5.0-8.5) Urine Specific [place] 1.004 (1.002-1.035) Urine Protein NEG mg/dL (NEG-TRACE) Urine Glucose (UA) NEG mg/dL (NEG) Urine Ketones NEG mg/dL (NEG) Urine Occult Blood NEG (NEG) Urine Nitrite NEG (NEG) Urine Bilirubin NEG (NEG) Urine Urobilinogen LESS THAN 2.0 MG/DL (LESS THAN 2.0) Urine Leukocyte Esterase NEG (NEG) Urine RBC LESS THAN 1 /hpf (0-3) Urine WBC 1 /hpf (0-5) Microscopic Urinalysis Comment CULT NOT INDICATED Urine Opiates Screen NEG (NEG) Urine Barbiturates Screen NEG (NEG) Urine Amphetamines Screen NEG (NEG) Urine Benzodiazepines Screen NEG (NEG) Urine Cocaine Screen NEG (NEG) Urine Cannabinoids Screen NEG (NEG) Objective Remarks GENERAL: Adult female in no acute distress. CARDIOVASCULAR: Regular rate and rhythm, no murmurs. RESPIRATORY: Breathing comfortably on room air. ABDOMEN/GI: Abdomen soft, non-tender. Heating pad on abdomen Fundus: Firm, non-tender below umbilicus. GENITOURINARY: Light to moderate bleeding. EXTREMITIES: No cyanosis or edema, non-tender, without signs of DVT. Medications and IVs Current Medications Medications (Trade) Dose Ordered Sig/Melony Route Start Time Stop Time Status Last Admin (Pill Splitter) 1 ea UNSCH PRN OTHER 09/03/16 16:00 09/03/16 21:07 (Karey-Colace) 2 tab BID PO 09/04/16 21:00 09/05/16 20:26 (Stuartnatal Plus 3 ) 1 tab DAILY PO 09/04/16 16:00 (NS Flush) 2 ml BID IV FLUSH 09/06/16 21:00 09/06/16 21:00 (NS Flush) 2 ml UNSCH PRN IV FLUSH 09/06/16 18:45 Ondansetron HCl 4 mg 4 mg Q6H PRN IV 09/06/16 20:00 (Pitocin 30 Units-NS 500 ml Premix) 500 ml @ 0 mls/hr TITRATE IV 09/07/16 17:00 09/09/16 16:59 (Lexapro) 5 mg HS@18 PO 09/08/16 18:00 09/08/16 17:36 Miscellaneous Information No systemic narcotics to be given except... UNSCH PRN XX 09/08/16 08:30 09/09/16 08:29 Miscellaneous Information DO NOT ADMINISTER ANY ANTICOAGUL... UNSCH PRN XX 09/08/16 08:30 09/09/16 08:29 (fentaNYL 2MCG-BUPIV 0.125% INJ) 100 ml @ 0 mls/hr TITRATE EPIDURAL 09/08/16 08:30 (ePHEDrine/NS 50 MG/5 ML SYR) 10 mg UNSCH PRN IV 09/08/16 08:30 09/09/16 08:29 (NS Flush) 2 ml BID IV 09/08/16 21:00 (NS Flush) 2 ml UNSCH PRN IV 09/08/16 15:30 (Tylenol) 650 mg Q4H PRN PO 09/08/16 15:30 09/08/16 20:53 (Motrin) 600 mg Q6H PRN PO 09/08/16 15:30 09/09/16 06:00 (Americaine 20% Top Spr) 1 spray Q4H PRN TOPICAL 09/08/16 15:30 (Tucks Pads) 1 applic QID PRN TOPICAL 09/08/16 15:30 (Karey-Colace) 2 tab Q12H PRN PO 09/08/16 15:30 (Ambien) 5 mg HS PRN PO 09/08/16 15:30 (Mag-Al Plus Susp Liq) 15 ml Q8H PRN PO 09/08/16 15:30 (Zofran Odt) 4 mg Q6H PRN PO 09/08/16 15:30 (Percocet 5-325 Mg) 2 tab Q6H PRN PO 09/08/16 23:45 09/09/16 06:01 (Percocet 5-325 Mg) 1 tab Q6H PRN PO 09/08/16 23:45 (Alina Quintero MD R1) Assessment/Plan Problem List: (1) Pre-eclampsia in third trimester (2) 36 weeks gestation of (3) Hepatitis C (4) Depression with anxiety Assessment and Plan 26 year-old female PPD1 vs induced vaginal delivery. 1. Induced vaginal delivery secondary to concern for pre-eclampsia -Continue routine care. -Motrin and Percocet and heating pad PRN pain. -Encouraged OOB. Advised pelvic rest for 6 wks. -Follow up OB appointment in [address] Abraham -Feeding baby via both breast and formula -Contraception preference is paraguard arranged outpatient with PCP -Discharge tomorrow pending VSS and pain control 2. Hepatitis C -follow up outpatient with GI -cause of elevated LFTs 3. Depression with anxiety -Continue Lexepro 5mg, consider increasing Discharge Planning Tomorrow, pending VSS and pain control. DW: Dr. Smith, Dr Linn (Alina Quintero MD R1) Attending Attestation Patient seen and evaluated with resident under direct supervision, agree with assessment and plan. (Peter Omer MD) Alina Quintero MD R1 Sep 09, 2016 07:28 Peter Omer MD Sep 09, 2016 09:22
[2016-09-09] MEDS: DOCUSATE SODIUM 50 MG/SENNA 8.6 MG TAB PO SCH (09:00)
[2016-09-09] MEDS: MULTIVIT/MIN/PREN/FOL AC/IRON PRENATAL TAB PO SCH (09:54)
[2016-09-09] MEDS: ESCITALOPRAM OXALATE 10 MG TAB PO SCH (18:03)
[2016-09-10] MEDS: oxyCODONE/ACETAMINOPHEN 5 MG/325 MG TAB PO PRN ×2 (00:07→06:00)
[2016-09-10] MEDS: DOCUSATE SODIUM 50 MG/SENNA 8.6 MG TAB PO SCH (00:08)
[2016-09-10] MEDS: IBUPROFEN 600 MG TAB PO PRN ×2 (00:08→05:59)
[2016-09-10] MEDS ORDERED: IBUP-232 PO (07:09)
[2016-09-10] MEDS ORDERED: SENN1TAB PO (07:09)
--- NOTE | 2016-09-10 07:10 | HHI.DCPOC ---
Discharge Care Plan Diagnosis: (1) induced hypertension (2) Vaginal delivery Report Symptoms to Your Doctor -Temperate above 100.5 degrees -Redness, of incision or excessive or foul smelling drainage -Unusual pain or calf pain -Increased vaginal bleeding -Painful or difficulty urinating -Feelings of extreme sadness or anxiety after 2 weeks Goals to Promote Your Health * To prevent worsening of your condition and complications * To maintain your health at the optimal level Directions to Meet Your Goals Take your medications as prescribed Follow your dietary instruction Follow activity as directed Ensure plenty of rest for recovery Drink fluids for hydration Keep your appointments as scheduled Take your immunizations and boosters as scheduled If your symptoms worsen call your PCP, if no PCP go to Urgent Care Center or Emergency Room Smoking is Dangerous to Your Health. Avoid second hand smoke Call the 24-hour crisis hotline for domestic abuse at Attestation discussed with resident and agree with outlined plan of care Davidson Linn MD R2 Sep 10, 2016 07:10 Mary Borden MD Sep 10, 2016 09:13
[2016-09-10] MEDS ORDERED: WITCH HAZEL 50%/GLYCERIN 12.5% 40 PAD JAR TOPICAL SCH (07:30)
[2016-09-10] MEDS ORDERED: BREAST PUMP1 MI1 TD (07:31)
--- NOTE | 2016-09-10 07:32 | HHI.OB ---
Subjective Post Day: 2 Remarks PPD2. AFVSS. B/P trending ~125/80. Reports moderate crampy abdominal pain, worse with standing, and rectal pain. Reports hx of hemorrhoids aggravated by delivery. Minimal lochia. Both breast-feeding and bottle feeding, Requesting rx for electronic breast pump. Eating, voiding, stooling, ambulating without difficullty. +BM day of delivery. Denies AWAD, SOB, chest pain, dysuria, or calf pain. (Alina Quintero MD R1) Objective Vitals/I&O Reviewed in OB trace Other Results Laboratory Tests Test 09/06/16 09/06/16 09/07/16 09:40 21:40 11:15 Amniotic Fluid Lamellar Body 52 COMMENT Count Blood Type O POSITIVE Band and Hold Urine Color LIGHT-YELLOW (YELLW/STRAW) Urine Turbidity CLEAR (CLEAR) Urine pH 6.5 (5.0-8.5) Urine Specific [place] 1.004 (1.002-1.035) Urine Protein NEG mg/dL (NEG-TRACE) Urine Glucose (UA) NEG mg/dL (NEG) Urine Ketones NEG mg/dL (NEG) Urine Occult Blood NEG (NEG) Urine Nitrite NEG (NEG) Urine Bilirubin NEG (NEG) Urine Urobilinogen LESS THAN 2.0 MG/DL (LESS THAN 2.0) Urine Leukocyte Esterase NEG (NEG) Urine RBC LESS THAN 1 /hpf (0-3) Urine WBC 1 /hpf (0-5) Microscopic Urinalysis Comment CULT NOT INDICATED Urine Opiates Screen NEG (NEG) Urine Barbiturates Screen NEG (NEG) Urine Amphetamines Screen NEG (NEG) Urine Benzodiazepines Screen NEG (NEG) Urine Cocaine Screen NEG (NEG) Urine Cannabinoids Screen NEG (NEG) Objective Remarks GENERAL: Adult female in no acute distress. CARDIOVASCULAR: Regular rate and rhythm, no murmurs. RESPIRATORY: Breathing comfortably on room air. ABDOMEN/GI: Abdomen soft, non-tender Fundus: Firm, non-tender below umbilicus. GENITOURINARY: Light vaginal bleeding. EXTREMITIES: No cyanosis or edema, non-tender, without signs of DVT. Medications and IVs Current Medications Medications (Trade) Dose Ordered Sig/Melony Route Start Time Stop Time Status Last Admin (Pill Splitter) 1 ea UNSCH PRN OTHER 09/03/16 16:00 09/03/16 21:07 (Karey-Colace) 2 tab BID PO 09/04/16 21:00 09/10/16 00:08 (Stuartnatal Plus 3 ) 1 tab DAILY PO 09/04/16 16:00 09/09/16 09:54 (NS Flush) 2 ml BID IV FLUSH 09/06/16 21:00 09/06/16 21:00 (NS Flush) 2 ml UNSCH PRN IV FLUSH 09/06/16 18:45 (Zofran Inj) 4 mg Q6H PRN IV 09/06/16 20:00 Escitalopram Oxalate 5 mg 5 mg HS@18 PO 09/08/16 18:00 09/09/16 18:03 (fentaNYL 2MCG-BUPIV 0.125% INJ) 100 ml @ 0 mls/hr TITRATE EPIDURAL 09/08/16 08:30 (NS Flush) 2 ml BID IV 09/08/16 21:00 (NS Flush) 2 ml UNSCH PRN IV 09/08/16 15:30 (Tylenol) 650 mg Q4H PRN PO 09/08/16 15:30 09/08/16 20:53 (Motrin) 600 mg Q6H PRN PO 09/08/16 15:30 09/10/16 05:59 (Americaine 20% Top Spr) 1 spray Q4H PRN TOPICAL 09/08/16 15:30 (Tucks Pads) 1 applic QID PRN TOPICAL 09/08/16 15:30 (Karey-Colace) 2 tab Q12H PRN PO 09/08/16 15:30 (Ambien) 5 mg HS PRN PO 09/08/16 15:30 (Mag-Al Plus Susp Liq) 15 ml Q8H PRN PO 09/08/16 15:30 (Zofran Odt) 4 mg Q6H PRN PO 09/08/16 15:30 (Percocet 5-325 Mg) 2 tab Q6H PRN PO 09/08/16 23:45 09/10/16 06:00 (Percocet 5-325 Mg) 1 tab Q6H PRN PO 09/08/16 23:45 (Alina Quintero MD R1) Assessment/Plan Problem List: (1) Pre-eclampsia in third trimester (2) 36 weeks gestation of (3) Hepatitis C (4) Depression with anxiety Assessment and Plan 26 year-old female PPD2 induced vaginal delivery. 1. Induced vaginal delivery secondary to concern for pre-eclampsia -Continue routine care. -Motrin and Percocet and heating pad PRN pain. Pain improving. -Encouraged OOB. Advised pelvic rest for 6 wks. -Follow up OB appointment in [address] Abraham for blood pressure check. -Feeding baby via both breast and formula -Will discharge with rx for electronic breast milk pump -Contraception preference is paraguard arranged outpatient with PCP -Discharge today as VSS and recovering well 2. Hepatitis C -follow up outpatient with GI -cause of elevated LFTs, improving 3. Depression with anxiety -Continue Lexepro 5mg, consider increasing as outpatient 4. Rectal Pain -Tucks QID MELONY -Prep H creme q2h [facility] Discharge Planning Today, pending pediatric clearance of DW: Dr Borden, Dr Linn (Alina Quintero MD R1) Attestation Discussed plan of care and agree with above (Mary Borden MD) Alina Quintero MD R1 Sep 10, 2016 07:32 Mary Borden MD Sep 10, 2016 09:15
[2016-09-10] MEDS ORDERED: PETROLEUM/SHARK LIVER OIL 60 GM TUBE RECTAL SCH (08:00)
[2016-09-10] MEDS ORDERED: OXYC1TAB63 PO (09:02)
[2016-09-16] MEDS ORDERED: BREAST PUMP1 MI1 TD (16:26)
== END 2016-09-10 11:30 | disposition home or self-care (01) | DRG 774 ==
LOC: HOBED 11:25 → H2EA 12:44 → OBSVTOIN 19:19 → H2EA 09-06 19:12 → H1EA 09-08 17:45
PROVIDERS: ADMIT Family Medicine; ATTEND Family Medicine
PROC: 10903ZU Drainage of Amniotic Fluid, Diagnostic from Products of Conception, Percutaneous Approach (ICD-10-PCS; 2016-09-06)
PROC: 10907ZC Drainage of Amniotic Fluid, Therapeutic from Products of Conception, Via Natural or Artificial Opening (ICD-10-PCS; 2016-09-07)
PROC: 00HU33Z Insertion of Infusion Device into Spinal Canal, Percutaneous Approach (ICD-10-PCS; 2016-09-07)
PROC: 3E0R3CZ (ICD-10-PCS; 2016-09-07)
PROC: 10E0XZZ Delivery of Products of Conception, External Approach (ICD-10-PCS; principal; 2016-09-08)
DX: O14.94 Unspecified pre-eclampsia, complicating childbirth (principal); O98.42 Viral hepatitis complicating childbirth; O99.344 Other mental disorders complicating childbirth; F41.8 Other specified anxiety disorders; H53.8 Other visual disturbances; B18.2 Chronic viral hepatitis C; Z88.0 Allergy status to penicillin; Z91.048 Other nonmedicinal substance allergy status; Z91.013 Allergy to seafood; K64.9 Unspecified hemorrhoids; Z3A.36 36 weeks gestation of pregnancy; Z37.0 Single live birth
CPT/HCPCS: 80053; 80307; 81001; 83664; 84157; 84550; 85025; 85027; 87081; 87150; 90715; 99284; G0378; J0702; J2590; J3010; J7120

== ENCOUNTER → 2016-09-03 | Outpatient (CLI) | payer OTHER ==
[~2016-09-03] MED LIST changes: +BREAST PUMP1 MI1 TD; +IBUP-232 PO; +OXYC1TAB63 PO; +PROM25TA5 PO; +SENN1TAB PO
== END ==
LOC: HPND 08:45
PROVIDERS: ATTEND Family Medicine
DX: O35.2XX0 Maternal care for (suspected) hereditary disease in fetus, not applicable or unspecified (principal); O98.513 Other viral diseases complicating pregnancy, third trimester
CPT/HCPCS: 76819

== ENCOUNTER 2017-03-21 16:19 | Observation (INO) | payer BC, OTHER ==
[~2017-03-21] VITALS: Ht 177.8 cm; Wt 106.8 kg
[~2017-03-21 16:19] MED LIST changes: +DULO1CAP2 PO; -LEXA10TA PO; -POTA1TAB4 PO; -PREN29TA PO; -PROM25TA5 PO
[2017-03-21 16:21] VITALS: BP 149/99; PULSE 90; RESP 15; TEMP 98.4; O2SAT 98
--- NOTE | 2017-03-21 16:54 | PD ---
HPI Chief Complaint: Pain: Acute or Chronic Time Seen by Provider: 16:54 Travel History International Travel<30 days: No Contact w/Intl Traveler<30days: No Traveled to known affect area: No History of Present Illness HPI 27-year-old female presents emergency department for evaluation of significant neck pain and headache. Patient states that on Friday, 5 days ago, the patient had a syncopal episode. She was taken to [facility]. She states she was there until Friday when she was discharged. During that stay she had a lumbar puncture to evaluate for meningitis per her report. She also reports that a cyst was identified on MRI in her brain as well as she was diagnosed with hyperthyroidism during this hospital stay. She states after discharge she developed a headache and significant neck pain with tingling in her arms so she went back to the same emergency department last evening. They gave her pain control she reports they contacted the anesthesiologist at [facility]. It was allegedly advised that she give it 24 hours and return with persistent or worsening of symptoms for a possible blood patch. Patient states her symptoms have not gotten better. They have only gotten worse. She feels as though her head is going to "pop off her shoulders." It is minimally alleviated by lying flat, but states she cannot get comfortable. She states that her hearing is different as well. Patient went to [facility] today because the anesthesiologist who advised return was there. She reports waiting in their emergency waiting room for 2 hours so she decided to come here to [place]. Patient reports no focal deficits. No chest or tightness. No fever or chills. She has no other symptoms to report. PFSH Past Medical History ADHD: No Cancer: No Diabetes: No Diminished Hearing: No Psychiatric: No Migraines: No Seizures: Yes (GRANDMOTHER) Thyroid Disease: No Ulcer: No ?: Not LMP: 03/06/17 : 3 Para: 1 Miscarriage: 1 Past Surgical History Appendectomy: No Cholecystectomy: No Social History Alcohol Use: No Tobacco Use: No Substance Use: Yes (HX OF IV DRUG USE OPIATES SOBER since 02/20/13) Allergies-Medications (Allergen,Severity, Reaction): Coded Allergies: Fish Containing Products (Unverified Allergy, Severe, 03/21/17) penicillin G (Unverified Allergy, Severe, RASH, 03/21/17) tramadol (Verified Allergy, Intermediate, Hives, 03/21/17) Reported Meds & Prescriptions Reported Meds & Active Scripts Active Duloxetine DR (Duloxetine HCl) 30 Mg Capdr 30 Mg PO DAILY Reported Hydrocodone-Acetaminophen 5-325 mg Tab 1 Tab PO Q6H PRN Methimazole 5 Mg Tab 5 Mg PO Q8HR Meclizine (Meclizine HCl) 12.5 Mg Tab 12.5 Mg PO BID PRN Review of Systems Except as stated in HPI: all other systems reviewed are Neg Physical Exam Narrative GENERAL: Well-nourished female patient, lying flat in bed, tearful but in no acute distress. SKIN: Focused skin assessment warm/dry. HEAD: Atraumatic. Normocephalic. EYES: Pupils equal and round. No scleral icterus. No injection or drainage. EOMI. Peripheral ENT: No nasal bleeding or discharge. Mucous membranes pink and moist. NECK: Trachea midline. No JVD. CARDIOVASCULAR: Regular rate and rhythm. No murmur appreciated. RESPIRATORY: No accessory muscle use. Clear to auscultation. Breath sounds equal bilaterally. GASTROINTESTINAL: Abdomen soft, non-tender, nondistended. Hepatic and splenic margins not palpable. MUSCULOSKELETAL: No obvious deformities. No clubbing. No cyanosis. No edema. Patient does report neck pain with hip flexion. Sensation intact distal extremities. NEUROLOGICAL: Awake and alert. No obvious cranial nerve deficits. Motor grossly within normal limits. Normal speech. PSYCHIATRIC: Appropriate mood and affect; insight and judgment normal. Data Data Last Documented VS Vital Signs Date Time Temp Pulse Resp B/P Pulse Ox O2 Delivery O2 Flow Rate FiO2 03/21/17 19:25 72 20 124/73 98 Nasal Cannula 03/21/17 16:21 98.4 Orders Iv Access Insert/Monitor (03/21/17 17:30) Complete Blood Count With Diff (03/21/17 17:30) Basic Metabolic Panel (Bmp) (03/21/17 17:30) Coag Profile (03/21/17 17:30) Sodium Chlor 0.9% 1000 Ml Inj (Ns 1000 M (03/21/17 17:30) Diphenhydramine Inj (Benadryl Inj) (03/21/17 17:30) Metoclopramide Inj (Reglan Inj) (03/21/17 17:30) Ketorolac Inj (Toradol Inj) (03/21/17 17:30) Dexamethasone Inj (Decadron Inj) (03/21/17 19:00) Sodium Chlor 0.9% 1000 Ml Inj (Ns 1000 M (03/21/17 19:00) Morphine Inj (Morphine Inj) (03/21/17 20:00) Labs Laboratory Tests Test 03/21/17 18:00 White Blood Count 8.4 TH/MM3 Red Blood Count 5.48 MIL/MM3 Hemoglobin 15.7 GM/DL Hematocrit 43.6 % Mean Corpuscular Volume 79.5 FL Mean Corpuscular Hemoglobin 28.6 PG Mean Corpuscular Hemoglobin 35.9 % Concent Red Cell Distribution Width 13.2 % Platelet Count 258 TH/MM3 Mean Platelet Volume 8.1 FL Neutrophils (%) (Auto) 67.9 % Lymphocytes (%) (Auto) 23.4 % Monocytes (%) (Auto) 7.6 % Eosinophils (%) (Auto) 0.4 % Basophils (%) (Auto) 0.7 % Neutrophils # (Auto) 5.7 TH/MM3 Lymphocytes # (Auto) 2.0 TH/MM3 Monocytes # (Auto) 0.6 TH/MM3 Eosinophils # (Auto) 0.0 TH/MM3 Basophils # (Auto) 0.1 TH/MM3 CBC Comment DIFF FINAL Differential Comment Prothrombin Time 10.3 SEC Prothromb Time International 0.9 RATIO Ratio Activated Partial 27.0 SEC Thromboplast Time Sodium Level 139 MEQ/L Potassium Level 4.0 MEQ/L Chloride Level 102 MEQ/L Carbon Dioxide Level 28.1 MEQ/L Anion Gap 9 MEQ/L Blood Urea Nitrogen 9 MG/DL Creatinine 0.77 MG/DL Estimat Glomerular Filtration 90 ML/MIN Rate Random Glucose 102 MG/DL Calcium Level 9.4 MG/DL [facility] Medical Decision Making Medical Screen Exam Complete: Yes Emergency Medical Condition: Yes Medical Record Reviewed: Yes Differential Diagnosis CSF leak versus radiculopathy versus electrolyte abnormality versus migraine headache with or without aura versus cluster headache versus tension headache Narrative Course 27-year-old female presents to the emergency department for evaluation of significant neck pain and headache. Patient states that she had a lumbar puncture done earlier this week and she believes that she needs a blood patch. Patient is followed by the resident family practice here. She has no focal deficits except for reporting a change in her hearing. Hip flexion does cause pain in her neck. Vital signs are stable otherwise. I have requested records from [facility]. Laboratory Tests Test 03/21/17 18:00 White Blood Count 8.4 TH/MM3 Red Blood Count 5.48 MIL/MM3 Hemoglobin 15.7 GM/DL Hematocrit 43.6 % Mean Corpuscular Volume 79.5 FL Mean Corpuscular Hemoglobin 28.6 PG Mean Corpuscular Hemoglobin 35.9 % Concent Red Cell Distribution Width 13.2 % Platelet Count 258 TH/MM3 Mean Platelet Volume 8.1 FL Neutrophils (%) (Auto) 67.9 % Lymphocytes (%) (Auto) 23.4 % Monocytes (%) (Auto) 7.6 % Eosinophils (%) (Auto) 0.4 % Basophils (%) (Auto) 0.7 % Neutrophils # (Auto) 5.7 TH/MM3 Lymphocytes # (Auto) 2.0 TH/MM3 Monocytes # (Auto) 0.6 TH/MM3 Eosinophils # (Auto) 0.0 TH/MM3 Basophils # (Auto) 0.1 TH/MM3 CBC Comment DIFF FINAL Differential Comment Prothrombin Time 10.3 SEC Prothromb Time International 0.9 RATIO Ratio Activated Partial 27.0 SEC Thromboplast Time Sodium Level 139 MEQ/L Potassium Level 4.0 MEQ/L Chloride Level 102 MEQ/L Carbon Dioxide Level 28.1 MEQ/L Anion Gap 9 MEQ/L Blood Urea Nitrogen 9 MG/DL Creatinine 0.77 MG/DL Estimat Glomerular Filtration 90 ML/MIN Rate Random Glucose 102 MG/DL Calcium Level 9.4 MG/DL I discussed the patient with my attending physician. IV fluids and pain control are provided. Upon reassessment, patient states it has "taken the edge off, but the pain is still there. Patient is given additional pain control and IV fluid. I discussed the patient my attending physician. A call is made to the resident physicians for observation for intractable pain and further evaluation of this pain. Of note, we have still not received the records from [facility]. Diagnosis Primary Impression: Intractable headache Qualified Code: R51 - Acute intractable headache, unspecified headache type Additional Impressions: Neck pain History of lumbar puncture within last 21 days Admitting Information Admitting Physician Requests: Observation Condition: Stable Yamilet Quijano Mar 21, 2017 16:54
[2017-03-21] MEDS ORDERED: HYDR-3516 PO (17:10)
[2017-03-21] MEDS ORDERED: METH5TAB4 PO (17:10)
[2017-03-21] MEDS ORDERED: MECL12.574 PO (17:10)
[2017-03-21] MEDS ORDERED: SODIUM CHLOR 0.9% 1000 ML INJ 1,000 ML IV ONE ×2 (17:30→19:00)
[2017-03-21] MEDS ORDERED: METOCLOPRAMIDE HCL 10 MG/2 ML VIAL IV PUSH ONE (17:30)
[2017-03-21] MEDS ORDERED: KETOROLAC TROMETHAMINE 30 MG/ML (IVP) VIAL IV PUSH ONE (17:30)
[2017-03-21] MEDS ORDERED: diphenhydrAMINE HCL 50 MG/ML VIAL IV PUSH ONE (17:30)
[2017-03-21 18:26] LABS: AUTOMATED NEUTROPHIL # 5.7 TH/MM3 (1.8-7.7); BASOPHIL # 0.1 TH/MM3 (0-0.2); BASOPHIL % 0.7 % (0.0-2.0); EOSINOPHIL % 0.4 % (0.0-4.0); HEMATOCRIT 43.6 % (35.0-46.0); HEMO FLAGS DIFF FINAL; LYMPH % 23.4 % (9.0-44.0); MEAN CELL VOLUME 79.5 FL (80.0-100.0); MEAN CORPUSCULAR HEMOGLOBIN 28.6 PG (27.0-34.0); MEAN CORPUSCULAR HGB CONC 35.9 % (32.0-36.0); MONO % 7.6 % (0.0-8.0); NEUT % 67.9 % (16.0-70.0); PLATELET COUNT 258 TH/MM3 (150-450); RED BLOOD COUNT 5.48 MIL/MM3 (4.00-5.30); RED CELL DISTRIBUTION WIDTH 13.2 % (11.6-17.2); WHITE BLOOD COUNT 8.4 TH/MM3 (4.0-11.0)
[2017-03-21 18:35] LABS: INTERNATIONAL NORMALIZED RATIO 0.9 RATIO; PROTHROMBIN TIME - PATIENT 10.3 SEC (9.8-11.6)
[2017-03-21 18:41] LABS: BICARBONATE 28.1 MEQ/L (21.0-32.0)
[2017-03-21] MEDS ORDERED: DEXAMETHASONE SOD PHOS 4 MG/ML VIAL IV PUSH ONE (19:00)
[2017-03-21 19:25] VITALS: BP 124/73; PULSE 72; RESP 20; O2SAT 98
[2017-03-21] MEDS ORDERED: MORPHINE SULFATE 4 MG/ML INJ IV PUSH ONE (20:00)
[2017-03-21 21:25] VITALS: BP_SYST 121; BP_SYST 170; BP_DIAS 64; BP_DIAS 71; PULSE 65; PULSE 74; RESP 18; RESP 20; O2SAT 100; O2SAT 97
--- NOTE | 2017-03-21 21:53 | RADRPT ---
EXAM DATE/TIME: 03/21/2017 21:29 [place] COMPARISON: No previous studies available for comparison. INDICATIONS : Headache and upper neck pain 2 days post lumbar puncture. RADIATION DOSE: 39.10 CTDIvol (mGy) MEDICAL HISTORY : Seizures. SURGICAL HISTORY : None. ENCOUNTER: Initial ACUITY: 2 days PAIN SCALE: 7/10 LOCATION: cranial TECHNIQUE: Multiple contiguous axial images were obtained of the head. Using automated exposure control and adj ustment of the mA and/or kV according to patient size, radiation dose was kept as low as reasonably a chievable to obtain optimal diagnostic quality images. DICOM format image data is available electro nically for review and comparison. FINDINGS: CEREBRUM: The ventricles are normal for age; nothing convincing for intracranial hypotension. No evidence of m idline shift, mass lesion, hemorrhage or acute infarction. No extra-axial fluid collections are seen . POSTERIOR FOSSA: The cerebellum and brainstem are intact. The 4th ventricle is midline. The cerebellopontine angle i s unremarkable. EXTRACRANIAL: The visualized portion of the orbits is intact. SKULL: The calvaria is intact. No evidence of skull fracture. CONCLUSION: Negative noncontrast head CT. Anibal Suazo MD on March 21, 2017 at 21:50 Board Certified Radiologist. This report was verified electronically.
[2017-03-21] MEDS ORDERED: SODIUM CHLORIDE 0.9% FLUSH 10 ML FLUSH IV FLUSH PRN ×2 (22:15→22:45)
[2017-03-21] MEDS ORDERED: SODIUM CHLORIDE 0.9% FLUSH 10 ML FLUSH IV FLUSH SCH (22:15)
--- NOTE | 2017-03-21 22:40 | HHI.HP ---
[facility] Service Family Medicine Primary Care Physician Kezia Mcneil R1 MD Adelia Admission Diagnosis intractable head and neck pain Diagnoses: International Travel<30 Days: No Contact w/Intl Traveler<30days: No Known Affected Area: No History of Present Illness Mrs. Briscoe is a 27-year-old female presenting to the emergency department for intractable headache with neck and back pain. She reports that 5 days ago, Friday, the patient had a syncopal episode and was taken to the [facility]. She was evaluated and discharged immediately after lumbar puncture to evaluate for possible infection/meningitis. Per her report she was diagnosed with hyperthyroidism and a "cyst on her brain." After her discharge she began having a headache with tingling and pain in her neck that radiated down her arms. She then re-presented to the [facility] for reevaluation. She was discharged from the ER and was told to return if within 24 hours her pain did not resolve, a blood patch would be considered for her symptoms as she is s/p lumbar puncture. Patient reports that her symptoms have gotten "much worse" and feels as if her "head is going to pop off." She states the only way she can be comfortable is low by lying flat and not moving. She reports the pain as stabbing and is up to 8/10 on the pain scale. The pain is exacerbated with different positioning standing/sitting upright. The pain radiates from her upper back all the way up her neck into her head. She has tried hydrocodone and heat/ice, but her symptoms have not been relieved. She also currently endorses decrease in hearing, decrease in vision, facial paresthesia, and dizziness. Otherwise she has no complaints and denies any fever , chest pain, shortness of breath, NVD, abdominal pain, or calf tenderness. ( Sin Taylor MD R2) Review of Systems Constitutional: DENIES: Fever, Chills Eyes: COMPLAINS OF: Blurred vision, Diplopia Ears, nose, mouth, throat: COMPLAINS OF: Hearing loss Respiratory: DENIES: Cough, Shortness of breath Cardiovascular: DENIES: Chest pain Gastrointestinal: COMPLAINS OF: Nausea, DENIES: Abdominal pain, Diarrhea, Vomiting Genitourinary: DENIES: Abnormal vaginal bleeding, Dysuria, Vaginal discharge Musculoskeletal: COMPLAINS OF: Joint pain, Back pain Integumentary: DENIES: Rash Hematologic/lymphatic: DENIES: Lymphadenopathy Neurologic: COMPLAINS OF: Headache, Paresthesias, DENIES: Seizures Psychiatric: COMPLAINS OF: Anxiety, DENIES: Mood changes, Hallucinations, Suicidal Ideation (Sin Taylor MD R2) Past Family Social History Past Medical History Hyperthyroidism Hepatitis C - untreated Anxiety underground utility locator (1 miscarriage/) Age of first menstruation: 12 Cycle: q28 days Length of menstruation: 7 days Past Surgical History None reported (Sin Taylor MD R2) Allergies: Coded Allergies: Fish Containing Products (Unverified Allergy, Severe, 03/21/17) penicillin G (Unverified Allergy, Severe, RASH, 03/21/17) tramadol (Verified Allergy, Intermediate, Hives, 03/21/17) Family History Dad: Generalized anxiety disorder Mom: Depression Children: Healthy Social History Lives at home with and 2 children in [place]. Works at [employer] in [facility]. Tobacco: Denies history, 1ppd for 13 years, quit about 1 year ago Alcohol: Denies history Illicit drugs: History of opiate abuse 4 years ago (Sin Taylor MD R2) Physical Exam Vital Signs Vital Signs Date Time Temp Pulse Resp B/P Pulse Ox O2 Delivery O2 Flow Rate FiO2 03/21/17 21:25 65 18 121/64 100 Nasal Cannula 03/21/17 19:25 72 20 124/73 98 Nasal Cannula 03/21/17 16:21 98.4 90 15 149/99 98 Physical Exam GENERAL: Well-nourished, well-developed 27-year-old female lying in bed in no acute distress. SKIN: Warm and dry. No rash. HEENT: Atraumatic, normocephalic with EOMI. PERRLA. MMM. Oropharynx clear without erythema or exudate. No LAD, JVD, or thyroid abnormality appreciated. CARDIOVASCULAR: Regular rate and rhythm without obvious murmurs, gallops, or rubs. RESPIRATORY: Clear to auscultation bilaterally with no CRW. No increased work of breathing. GASTROINTESTINAL: Abdomen soft, non-tender, nondistended with positive bowel sounds. No masses appreciated. MUSCULOSKELETAL: No cyanosis or edema. Strength grossly WNL. BACK: Patient refused exam NEURO/PSYCH: Afocal. Awake, alert, and oriented x3. Cranial nerves II through XII intact. Motor and sensory systems intact throughout body. Visual benson intact. Bedside hearing exam within normal limits. Cerebellar Mcconnell her testing performed while patient lying flat with no abnormality. Laboratory Laboratory Tests Test 03/21/17 18:00 White Blood Count 8.4 Red Blood Count 5.48 Hemoglobin 15.7 Hematocrit 43.6 Mean Corpuscular Volume 79.5 Mean Corpuscular Hemoglobin 28.6 Mean Corpuscular Hemoglobin 35.9 Concent Red Cell Distribution Width 13.2 Platelet Count 258 Mean Platelet Volume 8.1 Neutrophils (%) (Auto) 67.9 Lymphocytes (%) (Auto) 23.4 Monocytes (%) (Auto) 7.6 Eosinophils (%) (Auto) 0.4 Basophils (%) (Auto) 0.7 Neutrophils # (Auto) 5.7 Lymphocytes # (Auto) 2.0 Monocytes # (Auto) 0.6 Eosinophils # (Auto) 0.0 Basophils # (Auto) 0.1 CBC Comment DIFF FINAL Differential Comment Prothrombin Time 10.3 Prothromb Time International 0.9 Ratio Activated Partial 27.0 Thromboplast Time Sodium Level 139 Potassium Level 4.0 Chloride Level 102 Carbon Dioxide Level 28.1 Anion Gap 9 Blood Urea Nitrogen 9 Creatinine 0.77 Estimat Glomerular Filtration 90 Rate Random Glucose 102 Calcium Level 9.4 (Sin Taylor MD R2) Result Diagram: 03/21/17 1800 03/21/17 1800 Assessment and Plan Assessment and Plan Mrs. Briscoe is a 27-year-old female presenting to the emergency department for intractable headache with neck and back pain s/p lumbar puncture Code Status Full code Discussed Condition With Mrs. Quijano, FREDERICK Delvalle (Sin Taylor MD R2) Attending Attestation Patient seen and examined. Case reviewed and discussed Please refer to resident H&P for further details regarding HPI, ROS, PMH, Surghx , FH and SocHx In summary, patient is a 27yoF presenting with complaints of an intractable AWAD and neck pain She reports hospitalization at [facility] after a syncopal episode where she underwent LP Since that time, her AWAD and neck pain have gotten worse She reports not being able to move without worsening pain- feels most comfortable supine GENERAL: wdwn female, resting in bed supine SKIN: Warm and dry. No rashes HEAD: Normocephalic. EYES: No scleral icterus. No injection or drainage. ENT: OP clear. MMM NECK: Supple, trachea midline. No JVD or lymphadenopathy. +reproducible pain with neck flexion or sitting upright CARDIOVASCULAR: Regular rate and rhythm without murmurs, gallops, or rubs. RESPIRATORY: Breath sounds equal bilaterally. No accessory muscle use. GASTROINTESTINAL: Abdomen soft, non-tender, nondistended. MUSCULOSKELETAL: No cyanosis, or edema. No calf tenderness BACK: Nontender without obvious deformity. No CVA tenderness. NEURO: Awake and alert. Normal speech. Motor and sensory intact and equal bilaterally. A/P: 27yoF admitted with: Post-Lumbar puncture AWAD Intractable pain Hx PSA Recent diagnosis of hyperthyroidism Depression and anxiety Neurology consultation, appreciate expertise Blood patch Continue Methimazole Pain control Resume home meds as appropriate Hospital records requested Chemical DVT proph contraindicated secondary to bleeding Patient seen and examined. Case reviewed and discussed Agree with plan of care as discussed with me and documented in the resident note. (Crystal Schaffer MD) Problem List: (1) Intractable pain Status: Acute Plan: Patient presenting with intractable headache, neck pain, and back pain s/ p lumbar puncture Head CT: Negative noncontrast head CT Exam reassuring CBC: Within normal limits BMP: Within normal limits UA: Trace ketones, trace leukocyte esterase, culture not indicated Orthostatic vital signs within normal limits ER test negative UDS: Pending [facility] records requested Medications: Toradol, morphine, Reglan, Benadryl, and dexamethasone given once in ER [place] when necessary for pain with Toradol for breakthrough pain Normal saline at 75 mL per hour (2) History of lumbar puncture within last 21 days Status: Acute Plan: Please see plan as above (3) Depression with anxiety Status: Chronic Plan: Patient with chronic depression and anxiety Patient noncompliant with home duloxetine, hold medication (4) Vertigo Status: Chronic Plan: Patient with history of vertigo with current clinical symptoms not consistent with acute episode Continue meclizine when necessary (5) Hyperthyroidism Status: Chronic Plan: Patient recently diagnosed with hyperthyroidism secondary to unknown etiology Continue methimazole (6) No contraindication to deep vein thrombosis (DVT) prophylaxis Status: Acute Plan: Patient with recent lumbar puncture presenting with intractable pain Hold Lovenox SCD/TEDs (7) Nutrition, metabolism, and development symptoms Status: Acute Plan: Diet: Regular Fluids: Normal saline at 75 mL/h Electrolytes: Within normal limits Prophylaxis: constipation protocol, DuoNeb when necessary for shortness of breath, clonidine when necessary for blood pressure greater than 180/100, Zofran when necessary for nausea/vomiting, Vistaril when necessary for insomnia (Sin Taylor MD R2) Sin Taylor MD R2 Mar 21, 2017 22:40 Crystal Schaffer MD Mar 22, 2017 15:53
[2017-03-21] MEDS ORDERED: NALOXONE HCL 0.4 MG/ML AMP IV PRN ×2 (22:45)
[2017-03-21] MEDS ORDERED: MAGNESIUM HYDROXIDE SUSP 30 ML CUP PO PRN (22:45)
[2017-03-21] MEDS ORDERED: LACTULOSE SYRUP 20 GM/30 ML CUP PO PRN (22:45)
[2017-03-21] MEDS: SODIUM CHLORIDE 0.9% FLUSH 10 ML FLUSH IV FLUSH SCH (22:45)
[2017-03-21] MEDS ORDERED: ACETAMINOPHEN/HYDROcodone 325 MG/5 MG TAB PO PRN (22:45)
[2017-03-21] MEDS ORDERED: SENNOSIDES 8.6 MG TAB PO PRN (22:45)
[2017-03-21] MEDS ORDERED: KETOROLAC TROMETHAMINE 30 MG/ML (IVP) VIAL IVP PRN (22:45)
[2017-03-21] MEDS ORDERED: ONDANSETRON HCL 4 MG/2 ML VIAL IVP PRN (22:45)
[2017-03-21] MEDS ORDERED: ACETAMINOPHEN 325 MG TAB PO PRN (22:45)
[2017-03-21] MEDS ORDERED: BISACODYL 10 MG SUPP RECTAL PRN (22:45)
[2017-03-21] MEDS ORDERED: ENOXAPARIN SODIUM 40 MG/0.4 ML SYRINGE SQ SCH (23:00)
[2017-03-21 23:04] VITALS: BP 123/76; PULSE 69; RESP 18; O2SAT 99
[2017-03-21] MEDS: SODIUM CHLOR 0.45% 1000 ML INJ 1,000 ML IV SCH (23:24)
[2017-03-21 23:48] VITALS: BP_SYST 123; BP_SYST 128; BP_SYST 138; BP_DIAS 68; BP_DIAS 79; BP_DIAS 80; PULSE 74; RESP 18; TEMP 98.5; O2SAT 97
[2017-03-21 23:52] LABS: BACTERIA, URINE OCC /hpf; BLOOD, URINE NEG (NEG); COMMENT (UR) CULT NOT INDICATED; CULTURE IF INDICATED CULT NOT INDICATED; GLUCOSE,URINE NEG (NEG); KETONE, URINE TRACE mg/dL (NEG); MUCUS URINE FEW /lpf (OCC); NITRITE,URINE NEG (NEG); SQUAMOUS EPITHELIAL CELL URINE 2 /hpf (0-5); URINE COLOR YELLOW (YELLW/STRAW)
[2017-03-22] VITALS (7 sets, daily range): BP systolic 96–136; BP diastolic 55–86; PULSE 64–86; RESP 16–20; TEMP 97.6–98.4; O2SAT 96–99
[2017-03-22] MEDS: ACETAMINOPHEN/HYDROcodone 325 MG/7.5 MG TAB PO PRN ×3 (00:06→08:19)
--- NOTE | 2017-03-22 06:02 | HHI.FPPN ---
Subjective Remarks Still with 03/13 headache and neck pain Worse when upright No fevers chills or rashes No abdominal pain No CP No SOB No photophobia No visual changes No weakness Persistent back pain (Carlos Campbell MD, R3) Objective Vitals Vital Signs Date Time Temp Pulse Resp B/P Pulse Ox O2 Delivery O2 Flow Rate FiO2 03/22/17 04:07 98.2 86 18 125/68 96 129/73 129/78 03/21/17 23:48 98.5 74 18 123/68 97 128/79 138/80 03/21/17 23:04 69 18 123/76 99 Room Air 03/21/17 21:25 65 18 121/64 100 Nasal Cannula 03/21/17 19:25 72 20 124/73 98 Nasal Cannula 03/21/17 16:21 98.4 90 15 149/99 98 (Carlos Campbell MD, R3) Result Diagram: 03/21/17 1800 03/21/17 1800 Imaging Last [address] 03/21/17 0000 Signed Impressions: Service Date/Time: Tuesday, March 21, 2017 21:29 - CONCLUSION: Negative noncontrast head CT. Anibal Suazo MD Objective Remarks GENERAL: Well-nourished, well-developed patient. No acute distress. SKIN: Warm and dry. No rash. EYES: No scleral icterus. No injection or drainage. PERRLA. EOMI. HENT: Normocephalic. Atraumatic. MMM. NECK: No visible JVD or lymphadenopathy. CARDIOVASCULAR: Warm and well perfused. RESPIRATORY: Normal respiratory effort. GASTROINTESTINAL: Abdomen nondistended. MUSCULOSKELETAL: Strength grossly WNL. BACK: Without obvious deformity. NEURO/PSYCH: Cranial nerves intact. Pupils equal round and reactive. Extraocular eye movements intact. 5 out of 5 strength throughout. Full sensation, however more sensitive on the right side of the body per patient. Coordination/cerebellar testing normal. Pain on flexion of the neck. (Carlos Campbell MD, R3) A/P Assessment and Plan 27-year-old female presenting with worsening neck pain and headaches after lumbar puncture on 03/19. (Carlos Campbell MD, R3) Attending Attestation Patient seen and examined. Case reviewed and discussed with Dr. Campbell Agree with plan of care as discussed with me and documented in the resident note. Appreciate neurology input. Anesthesia to place blood patch. Will monitor. Prior hospital records requested. (Crystal Schaffer MD) Problem List: (1) Intractable headache Status: Acute Plan: Headache, and neck pain consistent with post-lumbar puncture headache. Patient also reports cyst on MRI done at [facility] is may be contributing to her headaches. Was on the differential is tension headaches, migraines, pseudotumor cerebri, malingering. No focal findings on neuro exam. No fevers, leukocytosis, or rashes on exam that are consistent with meningitis. Request records from [facility]. Patient was told that she did not have meningitis, or infection or spinal fluid. -Neuro exams every 4 hours -Pain control with 5-325 mg [place] for pain 135, 7.5-325 mg pain 6-10. -Meclizine when necessary dizziness. -Consider blood patch. -Consider repeat MRI if worsening. -Consult neurology. We appreciate their assistance. -Anticipate D/c in 24 hours. -PT (2) Vertigo Status: Chronic Plan: Resolved. Meclizine when necessary. It has been going on for 2 months. (3) Depression with anxiety Status: Chronic Plan: Previously taking Lexapro, however is not on this medication. Continue to monitor. (4) Nutrition, metabolism, and development symptoms Status: Acute Plan: IV fluids: 75 ML's normal saline per hour. DVT prophylaxis: SCDs given recent lumbar puncture. GI prophylaxis: None indicated Nutrition: Diet as tolerated. wdw Dr. Schaffer (Carlos Campbell MD, R3) Problem Qualifiers (1) Intractable headache: Qualified Code: R51 - Acute intractable headache, unspecified headache type Carlos Campbell MD, R3 Mar 22, 2017 06:02 Crystal Schaffer MD Mar 22, 2017 15:29
[2017-03-22] MEDS ORDERED: cloNIDine HCL 0.1 MG TAB PO PRN (06:15)
[2017-03-22] MEDS ORDERED: RESP: ALBUTEROL 2.5 MG/IPRATROPIUM 0.5 MG NEB (PRN) NEB (06:15)
[2017-03-22] MEDS ORDERED: MECLIZINE HCL 25 MG TAB PO PRN (06:15)
[2017-03-22] MEDS: METHIMAZOLE 5 MG TAB PO SCH ×3 (06:37→21:03)
[2017-03-22] MEDS: DOCUSATE SODIUM 50 MG/SENNA 8.6 MG TAB PO SCH ×2 (08:20→21:03)
[2017-03-22] MEDS: SODIUM CHLORIDE 0.9% FLUSH 10 ML FLUSH IV FLUSH SCH ×2 (08:20→21:00)
[2017-03-22 09:42] LABS: BICARBONATE 26.1 MEQ/L (21.0-32.0)
[2017-03-22 09:46] LABS: POTASSIUM 3.9 MEQ/L (3.5-5.1)
[2017-03-22] MEDS: SODIUM CHLOR 0.45% 1000 ML INJ 1,000 ML IV SCH ×2 (12:04→21:05)
--- NOTE | 2017-03-22 12:32 | MB ---
cc: SAMY KING M.D. DATE OF CONSULTATION: 03/22/2017. HISTORY OF PRESENT ILLNESS: 27-year-old right-handed woman with a history of hypertension, hepatitis C, hyperthyroidism who last Friday got out of her car and felt a little bit lightheaded for a day or two then passed out, she thinks for about 5 minutes and woke up. The ambulance was there. No incontinence or tongue biting. Blood pressure was low for several days at about 90/47. Evidently her white count was high. She was at [facility] in [place]. She had a spinal tap done on Friday of this week. She had woken up with a headache all over her head and some vertigo-type symptoms. Evidently a cyst was found on her brain. Nevertheless, she had a lumbar puncture, which she says was negative but since that time she has had significant neck pain and headache which comes on only when she sits or stands and goes away when she lays down. REVIEW OF SYSTEMS: Denies any diabetes, hypercholesterolemia, CA, stent angioplasty atrial fibrillation, Coumadin, renal or pulmonary disease lupus, ulcer, cancer seizure or stroke. SOCIAL HISTORY: She is not a smoker or a drinker. 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 She lives with her and child. FAMILY HISTORY: Positive for cancer. Negative for seizure or stroke. MEDICATIONS: 1. Methimazole. 2. Meclizine. 3. Some narcotics were just started evidently she was discharged from the other hospital. 4. Cymbalta. PHYSICAL EXAMINATION: VITAL SIGNS: Afebrile, 120 systolic. She has not been orthostatic. NEUROLOGICAL EXAMINATION: Pupils are equal. Visual benson are full. Extraocular movements intact without nystagmus. Face is symmetric with normal sensation. Tongue was midline. There is no drift. She had normal strength in upper and lower extremities bilaterally. DTRs are trace throughout. Toes are downgoing bilaterally. Pin prick is intact throughout including the occiput bilaterally. Tympanic membranes were clear bilaterally. There is no nystagmus. Normal strength in upper and lower extremities bilaterally. Speech is fluent. She is not aphasic. LABORATORY DATA: CBC is normal. Urine drug screen positive for barbiturates and opiates. Her urinalysis is negative. Basic metabolic profile normal. Coags normal. IMAGING STUDIES: She had a CT scan of her brain, which was read as negative. IMPRESSION 1. Post lumbar puncture headache. Will get a blood patch for her. 2. As far as her vertigo, that might be somewhat a benign positional vertigo but she has neck discomfort too. Check that now. I could follow her up as an outpatient. If her headache is better after the lumbar puncture is done, she could be discharged. At some point, the records from the outside hospital will need to be done. MD LILI Wooten/KIKI /11:12 AM /12:17 PM
[2017-03-22 13:22] LABS: AUTOMATED NEUTROPHIL # 11.6 TH/MM3 (1.8-7.7); BASOPHIL % 0.2 % (0.0-2.0); HEMATOCRIT 42.2 % (35.0-46.0); HEMO FLAGS DIFF FINAL; LYMPH % 10.3 % (9.0-44.0); LYMPHOCYTE # 1.4 TH/MM3 (1.0-4.8); MEAN CELL VOLUME 79.9 FL (80.0-100.0); MEAN CORPUSCULAR HEMOGLOBIN 27.5 PG (27.0-34.0); MEAN CORPUSCULAR HGB CONC 34.4 % (32.0-36.0); MONO % 5.6 % (0.0-8.0); NEUT % 83.9 % (16.0-70.0); PLATELET COUNT 299 TH/MM3 (150-450); RED BLOOD COUNT 5.28 MIL/MM3 (4.00-5.30); RED CELL DISTRIBUTION WIDTH 13.2 % (11.6-17.2); WHITE BLOOD COUNT 13.8 TH/MM3 (4.0-11.0)
[2017-03-22] MEDS ORDERED: GADODIAMIDE PF 287 MG/ML 20 ML VIAL (for RAD MRI) IV ONE (14:26)
--- NOTE | 2017-03-22 14:46 | RADRPT ---
EXAM DATE/TIME: 03/22/2017 13:38 [facility] COMPARISON: No previous studies available for comparison. INDICATIONS : Hematoma CONTRAST: 20 cc Omniscan (gadodiamide) IV MEDICAL HISTORY : None. SURGICAL HISTORY : None. ENCOUNTER: Initial ACUITY: 1 day PAIN SCORE: 0/10 LOCATION: Par[facility] TECHNIQUE: Multiplanar multisequence MRI of the thoracic spine was performed. FINDINGS: VERTEBRA: Normal vertebral body height. Homogeneous marrow signal. There is disc desiccation from T5-T10. ALIGNMENT: Normal. CORD: Normal position and configuration. POST CONTRAST: No abnormal areas of contrast enhancement seen. T1-T2: Normal. T2-T3: The thecal sac has a normal diameter. No evidence of disc bulge or protrusion. T3-T4: The thecal sac has a normal diameter. No evidence of disc bulge or protrusion. T4-T5: The thecal sac has a normal diameter. No evidence of disc bulge or protrusion. T5-T6: The thecal sac has a normal diameter. No evidence of disc bulge or protrusion. T6-T7: The thecal sac has a normal diameter. No evidence of disc bulge or protrusion. T7-T8: The thecal sac has a normal diameter. No evidence of disc bulge or protrusion. T8-T9: Mild broad-based disc bulge abuts ventral thecal sac without canal stenosis. T9-T10: Small right-sided protrusion abuts the right ventral thecal sac. No canal stenosis. T10-T11: The thecal sac has a normal diameter. No evidence of disc bulge or protrusion. T11-T12: The thecal sac has a normal diameter. No evidence of disc bulge or protrusion. T12-L1: The thecal sac has a normal diameter. No evidence of disc bulge or protrusion. CONCLUSION: 1. Mild broad-based disc bulge at T8-9 without canal stenosis. 2. Small right-sided protrusion at T9-10 level without canal stenosis. Garrett Forbes MD on March 22, 2017 at 14:42 Board Certified Radiologist. This report was verified electronically.
--- NOTE | 2017-03-22 14:53 | RADRPT ---
EXAM DATE/TIME: 03/22/2017 13:38 [facility] COMPARISON: No previous studies available for comparison. INDICATIONS : Hematoma. CONTRAST: 20 cc Omniscan (gadodiamide) IV MEDICAL HISTORY : None. SURGICAL HISTORY : None. ENCOUNTER: Initial ACUITY: 1 day PAIN SCORE: 7/10 LOCATION: neck TECHNIQUE: Multiplanar, multisequence MRI examination of the cervical spine was performed. FINDINGS: VERTEBRAE: Normal vertebral body height. Homogeneous marrow signal. ALIGNMENT: No evidence of subluxation. CORD: Normal configuration and signal. POST FOSSA: The cerebellar tonsils are normal in position. POST-CONTRAST: No abnormal areas of enhancement are seen. C2-C3: The thecal sac has a normal configuration. There is no evidence of disc herniation or spinal canal stenosis. The neural foramina are patent bilaterally. C3-C4: The thecal sac has a normal configuration. There is no evidence of disc herniation or spinal canal s tenosis. The neural foramina are patent bilaterally. C4-C5: The thecal sac has a normal configuration. There is no evidence of disc herniation or spinal canal s tenosis. The neural foramina are patent bilaterally. C5-C6: The thecal sac has a normal configuration. There is no evidence of disc herniation or spinal canal s tenosis. The neural foramina are patent bilaterally. C6-C7: The thecal sac has a normal configuration. There is no evidence of disc herniation or spinal canal s tenosis. The neural foramina are patent bilaterally. C7-T1: The thecal sac has a normal configuration. There is no evidence of disc herniation or spinal canal s tenosis. The neural foramina are patent bilaterally. CONCLUSION: 1. Normal cervical spine. Garrett Forbes MD on March 22, 2017 at 14:50 Board Certified Radiologist. This report was verified electronically.
--- NOTE | 2017-03-22 15:00 | RADRPT ---
EXAM DATE/TIME: 03/22/2017 13:38 [facility] COMPARISON: No previous studies available for comparison. INDICATIONS : Pain. Hematoma. Low back pain. CONTRAST: 20 cc Omniscan (gadodiamide) IV MEDICAL HISTORY : None. SURGICAL HISTORY : None. ENCOUNTER: Initial ACUITY: 1 day PAIN SCORE: 0/10 LOCATION: Paraspinal TECHNIQUE: Multiplanar multisequence MRI of the lumbar spine was performed with and without contrast. FINDINGS: The most caudal appearing lumbar vertebra is numbered as L6. VERTEBRAE: Homogeneous signal. Normal alignment. CONUS: Normal level and configuration. POST CONTRAST: No abnormal areas of contrast enhancement are seen. T12-L1: The thecal sac has a normal diameter. No evidence of disc bulge or protrusion. The neural foramina are patent bilaterally. L1-L2: The thecal sac has a normal diameter. No evidence of disc bulge or protrusion. The neural foramina are patent bilaterally. L2-L3: The thecal sac has a normal diameter. No evidence of disc bulge or protrusion. The neural foramina are patent bilaterally. L3-L4: The thecal sac has a normal diameter. No evidence of disc bulge or protrusion. The neural foramina are patent bilaterally. L4-L5: The thecal sac has a normal diameter. No evidence of disc bulge or protrusion. The neural foramina are patent bilaterally. L5-L6: Mild broad-based protrusion more notably centrally. This abuts the ventral thecal sac. No canal steno sis. The neural foramina are patent bilaterally. L6-S1: Mild broad-based protrusion more eccentric to the right abuts the ventral thecal sac. No canal stenos is. The neural foramina are patent bilaterally. CONCLUSION: 1. There are 6 lumbar vertebral bodies labeled on this particular study. 2. Mild broad-based protrusion seen more centrally at L5-6. No canal stenosis. 3. Mild broad-based protrusion more eccentric to the right at L6 S1. No canal stenosis. Garrett Forbes MD on March 22, 2017 at 14:54 Board Certified Radiologist. This report was verified electronically.
[2017-03-22] MEDS ORDERED: MIDAZOLAM HCL 5 MG/5 ML VIAL ONE (15:58)
[2017-03-22] MEDS ORDERED: *HYDROmorphone PF 1 MG VIAL PERIprocedural Use ONLY ONE (16:14)
[2017-03-22] MEDS ORDERED: HYDROmorphone HCL PF 1 MG/ML VIAL IV PUSH ONE (16:45)
[2017-03-23 03:54] VITALS: BP 112/71; PULSE 66; RESP 20; TEMP 97.9; O2SAT 97
[2017-03-23] MEDS: METHIMAZOLE 5 MG TAB PO SCH (05:12)
[2017-03-23 05:21] LABS: AUTOMATED NEUTROPHIL # 6.2 TH/MM3 (1.8-7.7); BASOPHIL % 0.5 % (0.0-2.0); EOSINOPHIL # 0.1 TH/MM3 (0-0.4); EOSINOPHIL % 0.8 % (0.0-4.0); HEMATOCRIT 37.9 % (35.0-46.0); HEMO FLAGS DIFF FINAL; LYMPH % 28.9 % (9.0-44.0); LYMPHOCYTE # 2.9 TH/MM3 (1.0-4.8); MEAN CELL VOLUME 80.1 FL (80.0-100.0); MEAN CORPUSCULAR HEMOGLOBIN 28.3 PG (27.0-34.0); MEAN CORPUSCULAR HGB CONC 35.3 % (32.0-36.0); MONO % 6.7 % (0.0-8.0); NEUT % 63.1 % (16.0-70.0); PLATELET COUNT 228 TH/MM3 (150-450); RED BLOOD COUNT 4.73 MIL/MM3 (4.00-5.30); RED CELL DISTRIBUTION WIDTH 12.9 % (11.6-17.2); WHITE BLOOD COUNT 9.9 TH/MM3 (4.0-11.0)
[2017-03-23 06:07] LABS: ANION GAP 9 MEQ/L (5-15); AST (GOT) 17 U/L (15-37); BICARBONATE 24.1 MEQ/L (21.0-32.0); BLOOD UREA NITROGEN 6 MG/DL (7-18); CHLORIDE 106 MEQ/L (98-107); GLOMERULAR FILTRATION RATE 135 ML/MIN (>89); POTASSIUM 3.6 MEQ/L (3.5-5.1); SODIUM (NA) 139 MEQ/L (136-145)
[2017-03-23 06:09] LABS: ALT (GPT) 36 U/L (10-53)
[2017-03-23 06:12] LABS: ALKALINE PHOSPHATASE 51 U/L (45-117); TOTAL BILIRUBIN ADULT 0.3 MG/DL (0.2-1.0)
[2017-03-23 07:36] VITALS: BP 125/64; PULSE 62; RESP 18; TEMP 97.5; O2SAT 94
[2017-03-23 07:44] VITALS: BP 114/56; PULSE 65; TEMP 97.9; O2SAT 95
[2017-03-23 07:51] VITALS: O2SAT 98
[2017-03-23] MEDS: DOCUSATE SODIUM 50 MG/SENNA 8.6 MG TAB PO SCH ×2 (09:00→09:06)
[2017-03-23] MEDS: SODIUM CHLORIDE 0.9% FLUSH 10 ML FLUSH IV FLUSH SCH (09:00)
--- NOTE | 2017-03-23 09:22 | HHI.FPPN ---
Subjective Remarks Please see hand written note in chart. Objective Vitals Vital Signs Date Time Temp Pulse Resp B/P (MAP) Pulse Ox O2 Delivery O2 Flow Rate FiO2 03/23/17 07:51 98 21 03/23/17 07:44 97.9 65 114/56 (75) 95 03/23/17 07:36 97.5 62 18 125/64 (84) 94 03/23/17 03:54 97.9 66 20 112/71 (85) 97 03/22/17 23:12 98.0 75 20 96/55 (69) 98 03/22/17 19:47 97.9 72 20 124/65 (84) 96 129/81 (97) 135/86 (102) 03/22/17 17:32 136/80 (98) 129/75 (93) 03/22/17 17:30 98.0 64 18 125/74 (91) 99 03/22/17 17:00 97.7 66 16 126/75 (92) 96 Room Air 03/22/17 16:45 62 16 125/77 (93) 97 Room Air 03/22/17 16:30 72 16 121/66 (84) 97 Room Air 03/22/17 16:15 74 16 131/65 (87) 97 Room Air 03/22/17 16:00 79 16 105/66 (79) 95 Room Air 03/22/17 15:50 97.7 77 16 112/64 (80) 97 Room Air 03/22/17 11:28 98.4 66 16 116/64 (81) 98 Result Diagram: 03/23/17 0450 03/23/17 0450 Carlos Campbell MD, R3 Mar 23, 2017 09:22
[2017-03-23] MEDS ORDERED: POLYETHYLENE GLYCOL 17 GM PKG ONE (10:49)
--- NOTE | 2017-03-23 13:22 | HHI.DCPOC ---
Discharge Care Plan Diagnosis: (1) Headache Goals to Promote Your Health * To prevent worsening of your condition and complications * To maintain your health at the optimal level Directions to Meet Your Goals Take your medications as prescribed Follow your dietary instruction Follow activity as directed Keep your appointments as scheduled Take your immunizations and boosters as scheduled If your symptoms worsen call your PCP, if no PCP go to Urgent Care Center or Emergency Room Smoking is Dangerous to Your Health. Avoid second hand smoke Call the 24-hour hour crisis hotline for domestic abuse at Carlos Campbell MD, R3 Mar 23, 2017 13:22
--- NOTE | 2017-03-23 13:24 | HHI.DS ---
Discharge Summary Admission Date Mar 21, 2017 at 20:42 Admitting Diagnosis intractable head and neck pain (1) Intractable headache Plan: Headache, and neck pain consistent with post-lumbar puncture headache. Patient also reports cyst on MRI done at [facility] is may be contributing to her headaches. Was on the differential is tension headaches, migraines, pseudotumor cerebri, malingering. No focal findings on neuro exam. No fevers, leukocytosis, or rashes on exam that are consistent with meningitis. Request records from [facility]. Patient was told that she did not have meningitis, or infection or spinal fluid. -Neuro exams every 4 hours -Pain control with 5-325 mg [place] for pain 135, 7.5-325 mg pain 6-10. -Meclizine when necessary dizziness. -Consider blood patch. -Consider repeat MRI if worsening. -Consult neurology. We appreciate their assistance. -Anticipate D/c in 24 hours. -PT ICD Codes: R51 - Headache Status: Acute (2) Vertigo Plan: Resolved. Meclizine when necessary. It has been going on for 2 months. ICD Codes: R42 - Dizziness and giddiness Status: Chronic (3) Depression with anxiety Plan: Previously taking Lexapro, however is not on this medication. Continue to monitor. ICD Codes: F41.8 - Other specified anxiety disorders Status: Chronic (4) Nutrition, metabolism, and development symptoms Plan: IV fluids: 75 ML's normal saline per hour. DVT prophylaxis: SCDs given recent lumbar puncture. GI prophylaxis: None indicated Nutrition: Diet as tolerated. wdw Dr. Schaffer ICD Codes: R63.8 - Other symptoms and signs concerning food and fluid intake Status: Acute Brief History Mrs. Briscoe is a 27-year-old female presenting to the emergency department for intractable headache with neck and back pain. She reports that 5 days ago, Friday, the patient had a syncopal episode and was taken to the [facility]. She was evaluated and discharged immediately after lumbar puncture to evaluate for possible infection/meningitis. Per her report she was diagnosed with hyperthyroidism and a "cyst on her brain." After her discharge she began having a headache with tingling and pain in her neck that radiated down her arms. She then re-presented to the [facility] for reevaluation. She was discharged from the ER and was told to return if within 24 hours her pain did not resolve, a blood patch would be considered for her symptoms as she is s/p lumbar puncture. Patient reports that her symptoms have gotten "much worse" and feels as if her "head is going to pop off." She states the only way she can be comfortable is low by lying flat and not moving. She reports the pain as stabbing and is up to 8/10 on the pain scale. The pain is exacerbated with different positioning standing/sitting upright. The pain radiates from her upper back all the way up her neck into her head. She has tried hydrocodone and heat/ice, but her symptoms have not been relieved. She also currently endorses decrease in hearing, decrease in vision, facial paresthesia, and dizziness. Otherwise she has no complaints and denies any fever , chest pain, shortness of breath, NVD, abdominal pain, or calf tenderness. CBC/BMP: 03/23/17 0450 03/23/17 0450 Significant Findings Laboratory Tests Test 03/21/17 18:00 03/21/17 23:05 03/22/17 08:42 03/22/17 13:10 Red Blood Count 5.48 MIL/MM3 (4.00-5.30) Hemoglobin 15.7 GM/DL (11.6-15.3) Mean Corpuscular Volume 79.5 FL (80.0-100.0) 79.9 FL (80.0-100.0) Urine Ketones TRACE mg/dL (NEG) Urine Leukocyte Esterase TRACE (NEG) Urine Bacteria OCC /hpf (NONE) Urine Mucus FEW /lpf (OCC) Urine Opiates Screen POS (NEG) Urine Barbiturates Screen POS (NEG) Random Glucose 129 MG/DL (74-106) White Blood Count 13.8 TH/MM3 (4.0-11.0) Neutrophils (%) (Auto) 83.9 % (16.0-70.0) Neutrophils # (Auto) 11.6 TH/MM3 (1.8-7.7) Test 03/23/17 04:50 Blood Urea Nitrogen 6 MG/DL (7-18) Total Protein 6.3 GM/DL (6.4-8.2) Albumin 3.1 GM/DL (3.4-5.0) PE at Discharge GENERAL: Well-nourished, well-developed patient. No acute distress. SKIN: Warm and dry. No rash. EYES: No scleral icterus. No injection or drainage. PERRLA. EOMI. HENT: Normocephalic. Atraumatic. MMM. NECK: No visible JVD or lymphadenopathy. CARDIOVASCULAR: Warm and well perfused. RESPIRATORY: Normal respiratory effort. GASTROINTESTINAL: Abdomen nondistended. MUSCULOSKELETAL: Strength grossly WNL. BACK: Without obvious deformity. NEURO/PSYCH: Cranial nerves intact. Pupils equal round and reactive. Extraocular eye movements intact. 5 out of 5 strength throughout. Full sensation, however more sensitive on the right side of the body per patient. Coordination/cerebellar testing normal. Pain on flexion of the neck. Hospital Course Mrs. Briscoe is a 27-year-old female, with a past medical history of anxiety depression, hepatitis C, and vertigo, who was admitted with intractable headaches. Previous to her admission, she was admitted to [facility] for a syncopal episode. A workup at that time included a lumbar puncture. She was discharged home in stable condition. She reports that since getting the lumbar puncture she has had a headache, as well as a stiff neck. She reported that her headaches are worse when sitting up. She was evaluated by neurology during her hospitalization. Exam, and symptoms were consistent with a post lumbar puncture headache. She was given a blood patch, and her headache resolved. She was discharged home in stable condition. Pt Condition on Discharge: Stable Discharge Disposition: Discharge Home Discharge Instructions DIET: Follow Instructions for: As Tolerated, No Restrictions Activities you can perform: Regular-No Restrictions Continued Medications: Hydrocodone-Acetaminophen (Hydrocodone-Acetaminophen) 5-325 mg Tab 1 TAB PO Q6H PRN for PAIN, #30 TAB 0 Refills Methimazole (Methimazole) 5 Mg Tab 5 MG PO Q8HR for Thyroid, #90 TAB 0 Refills Discontinued Medications: Duloxetine DR (Duloxetine DR) 30 Mg Capdr 30 MG PO DAILY, #30 CAP 2 Refills Meclizine (Meclizine) 12.5 Mg Tab 12.5 MG PO BID PRN for VERTIGO, TAB 0 Refills Carlos Campbell MD, R3 Mar 23, 2017 13:24
[2017-03-23] MEDS ORDERED: POLYETHYLENE GLYCOL 17 GM PKG PO ONE (14:00)
[2017-03-23 15:00] VITALS: BP 120/68; PULSE 66; RESP 20; TEMP 97.9; O2SAT 96
[2017-03-23] MEDS ORDERED: METHIMAZOLE 5 MG TAB PO SCH (22:00)
[2017-03-31] MEDS ORDERED: LORA-373 PO (10:45)
[2017-04-22] MEDS ORDERED: LORA-373 PO ×2 (09:36→10:01)
== END 2017-03-23 18:41 | disposition home or self-care (01) ==
LOC: NEPE 16:19 → NEDA 20:42 → NEPFCDU 23:25
PROVIDERS: ADMIT Family Medicine; ATTEND Family Medicine
DX: R51 Headache (principal); M54.2 Cervicalgia; G97.1 Other reaction to spinal and lumbar puncture; E05.90 Thyrotoxicosis, unspecified without thyrotoxic crisis or storm; F41.8 Other specified anxiety disorders; I10 Essential (primary) hypertension; Y84.4 Aspiration of fluid as the cause of abnormal reaction of the patient, or of later complication, without mention of misadventure at the time of the procedure; Z91.19 Patient's noncompliance with other medical treatment and regimen; Z87.891 Personal history of nicotine dependence; Z79.899 Other long term (current) drug therapy
CPT/HCPCS: 62273; 70450; 72156; 72157; 72158; 80048; 80053; 80307; 81001; 84703; 85025; 85610; 85652; 85730; 96361; 96374; 96375; 97162; 99285; A9579; G0378; G8987; G8988; J1100; J1170; J1200; J1885; J2250; J2270; J2405; J2765; J7030